=== PATIENT | male | born 1970 | race Hispanic/Latino ===

== ENCOUNTER 2018-04-16 15:37 | Inpatient (IN) | payer SELFPAY ==
[2018-04-16] MEDS ORDERED: Aspirin 325 mg EC Tablets PO ONE (16:19)
--- NOTE | 2018-04-16 16:20 | ED PDOC ---
HPI: Chest Pain Time Seen by Provider: 04/16/18 15:54 Chief Complaint (Nursing): Chest Pain History Per: Patient Onset/Duration Of Symptoms: Days (1) Current Symptoms Are (Timing): Still Present Severity: Moderate Pain Scale Rating Of: 6 Quality: Tightness Modifying Factors: None Exacerbating Factors: None Alleviating Factors: None Nitro Therapy Administered: 1, Per Own Supply Additional Complaint(s): Chest tightness assoc with exertion. Took SL Nitro with no relief. Told 6 months ago in [place] he had abnormal stress test and needed cardiac cath but has not gone. Also has h/o PE on Eliquis, but does not feel like when he had PEs. Past Medical History Vital Signs: Last Vital Signs Temp 98.1 F 04/16/18 15:45 Pulse 113 H 04/16/18 15:45 Resp 20 04/16/18 15:45 BP 152/108 H 04/16/18 15:45 Pulse Ox 97 04/16/18 15:45 - Medical History PMH: CAD, Pulmonary Embolism - Family History Family History: States: Unknown Family Hx - Home Medications Home Medications: Ambulatory Orders Medication Instructions Recorded Apixaban [Eliquis] 5 mg PO Q12 04/16/18 Aspirin [Ecotrin] 81 mg PO DAILY 04/16/18 Atorvastatin [Lipitor] 80 mg PO HS 04/16/18 Isosorbide Mononitrate [Imdur] 60 mg PO DAILY 04/16/18 Levothyroxine [Synthroid] 50 mcg PO DAILY 04/16/18 Lidocaine 5% [Lidoderm] 1 patch TD DAILY 04/16/18 Lisinopril [Zestril] 20 mg PO DAILY 04/16/18 Methylnaltrexone [place] [Relistor] 150 mg PO DAILY PRN 04/16/18 Metoprolol Tartrate [Lopressor] 150 mg PO Q12 04/16/18 Multivitamin [Multi-Vitamin Daily] 1 tab PO DAILY 04/16/18 amLODIPine [Norvasc] 5 mg PO DAILY 04/16/18 oxyCODONE [oxyCODONE Immediate 15 mg PO Q4 PRN 04/16/18 Release Tab] - Allergies Allergies/Adverse Reactions: Allergies Allergy/AdvReac Type Severity Reaction Status Date / Time Penicillins Allergy RASH Verified 04/16/18 15:45 Review of Systems ROS Statement: Except As Marked, All Systems Reviewed And Found Negative Cardiovascular: Positive for: Chest Pain Respiratory: Positive for: Shortness of Breath, SOB with Exertion Physical Exam - Reviewed Nursing Documentation Reviewed: Yes Vital Signs Reviewed: Yes - Physical Exam Appears: Positive for: Non-toxic, No Acute Distress Head Exam: Positive for: ATRAUMATIC, NORMAL INSPECTION, NORMOCEPHALIC Skin: Positive for: Normal Color, Warm, DRY Eye Exam: Positive for: EOMI, Normal appearance, PERRL ENT: Positive for: Normal ENT Inspection Neck: Positive for: Normal, Painless ROM Cardiovascular/Chest: Positive for: Regular Rate, Rhythm Respiratory: Positive for: CNT, Normal Breath Sounds Gastrointestinal/Abdominal: Positive for: Normal Exam, Soft Back: Positive for: Normal Inspection Extremity: Positive for: Normal ROM. Negative for: Calf Tenderness, Swelling Neurological/Psych: Positive for: Awake, Alert, Normal Tone - ECG O2 Sat by Pulse Oximetry: 97 Medical Decision Making Medical Decision Making: EKGSinus tach. No acute ST changes Rate 112. Will w/u for ACS withy troponins and also for PE with CTA Chest Disposition - Clinical Impression Clinical Impression: Chest pain - Patient ED Disposition Is Patient to be Admitted: Yes - Disposition Disposition Time: 16:22 Condition: FAIR Forms: [employer] (Malay) - Pt Status Changed To: Hospital Disposition Of: Observation - POA Present On Arrival: None
[2018-04-16] MEDS ORDERED: Nitroglycerin 2% 15 INCH/30 GM TUBE TOP STA (16:30)
--- NOTE | 2018-04-16 16:52 | RAD ---
Date of service: 04/16/2018 HISTORY: Chest pain COMPARISON: No prior. TECHNIQUE: Chest PA and lateral FINDINGS: LINES AND TUBES: None. LUNG AND PLEURA: The lungs are well inflated. There is subsegmental atelectasis in the lower lobes. No pleural effusion or pneumothorax. HEART AND MEDIASTINUM: The heart is not enlarged. No aortic atherosclerotic calcifications present. The hilar and mediastinal contours are within normal limits. SKELETAL STRUCTURES: The bony structures are within normal limits for the patient's age. VISUALIZED UPPER ABDOMEN: Normal. OTHER FINDINGS: None. IMPRESSION: No active pulmonary disease.
[2018-04-16] MEDS ORDERED: Nitroglycerin 2% Ointment Foilpak UD TOP ONE (17:30)
[2018-04-16] MEDS ORDERED: Iodixanol 320 MG/ML 100 ML BOTTLE IV ONE (17:35)
[2018-04-16] MEDS ORDERED: Sodium Chloride 0.9% 50 ML IV ONE (17:35)
[2018-04-16] MEDS ORDERED: Nitroglycerin 2% Ointment Foilpak UD TOP STA (17:41)
[2018-04-16 17:47] LABS: INR 1.1; PROTHROMBIN TIME 12.6 Seconds (9.8-13.1)
[2018-04-16 17:48] LABS: ALB/GLOB RATIO 1.1 (1.0-2.1); ALBUMIN 4.5 g/dL (3.5-5.0); ALT/SGPT 178 U/L (21-72); AST/SGOT 108 U/L (17-59); BLOOD UREA NITROGEN 11 mg/dl (9-20); CALCIUM 9.4 mg/dL (8.4-10.2); GFR NON-AFRICAN AMERICAN > 60
[2018-04-16 17:49] LABS: BASO % 0.5 % (0.0-2.0); EOS # 0.1 K/uL (0.0-0.7); EOS % 2.5 % (0.0-4.0); HEMOGLOBIN 13.5 g/dL (12.0-18.0); LYMPH # 0.7 K/uL (1.0-4.3); LYMPH % 16.8 % (20.0-40.0); MEAN CELL VOLUME 86.6 fl (80.0-94.0); MEAN CORPUSCULAR HEMOGLOBIN 29.1 pg (27.0-31.0); MEAN CORPUSCULAR HGB CONC 33.5 g/dL (33.0-37.0); MEAN PLATELET VOLUME 8.7 fl (7.2-11.7); MONO # 0.3 K/uL (0.0-0.8); MONO % 7.3 % (0.0-10.0); NEUT # 2.9 K/uL (1.8-7.0); NEUT % 72.9 % (50.0-75.0); NRBC % 0.3 % (0.0-0.0); RBC 4.66 Mil/uL (4.40-5.90); RED CELL DISTRIBUTION WIDTH 18.7 % (11.5-14.5)
[2018-04-16] MEDS ORDERED: METHYLNALTREXONE BROMIDE 150 MG PO PRN (18:35)
--- NOTE | 2018-04-16 19:03 | CP.PCM.HP ---
<Sultan Jackie - Last Filed: 04/16/18 19:44> History of Present Illness - History of Present Illness History of Present Illness: CC: Chest pain HPI: 47 year old Male with PMHx of hypertension, hyperlipidemia, hypothyroidism, multiple pulmonary embolism (last PE in 12/2017) presents to the emergency department for evaluation of exertional chest pain and dyspnea on exertion. States patient was climbing 2 flights of stairs when he developed squeezing, non-radiating left sided chest pain (6/10) associated with dyspnea. Denies any nausea, vomiting, diaphoresis or dizziness. Patient took SL nitroglycerin with some relief. Patient reports he had intermittent chest pain for 8 months and progressively getting worse. States he had nuclear stress test about 8 months and exercise stress test done 5 months ago, both of which were abnormal while he was in [place]. Patient was recommended to have cardiac cath done but did not follow up. Patient also reports worsening dyspnea with exertion for last 4 months. +PND and uses 2 pillows at night to sleep. Patient is unsure whether he has hx heart failure or not. Denies any leg swelling or cough. Patient has hx multiple PE in the past. States he is compliant with anticoagulation. States hypercoagulable workup was negative in the past. In the ED, patients ECG shows sinus tachycardia with no ST/T wave changes. Troponin x 1 neg. Patient is admitted for evaluation of chest pain. ROS: All 12 systems reviewed and negative except as mentioned in HPI PMD: Dr. Daniel Ayala in [place], [place] Tenterer: none PMHx: Multiple Pulmonary embolism (2014, 04/2017 and 12/2017), Hx DVT, hypertension, HLD, Hypothyroidism, abnormal stress test, back pain, rotator cuff injury, Surgical hx: Right knee, right hip pinning, L4-L5 surgery. Social hx: Denies smoking cigarettes or drinking alcohol. Denies using illicit drugs. 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 Family hx: Father had heart attack at age 54, brother CABG at age 39 and paternal grandfather had heart disease. Allergies: PCN Meds: reviewed Present on Admission - Present on Admission Any Indicators Present on Admission: Yes History of DVT/PE: Yes Review of Systems - Review of Systems Review of Systems: All 12 systems reviewed and negative except as mentioned in HPI Past Patient History - Past Social History Smoking Status: Never Smoked - CARDIAC Hx Cardiac Disorders: Yes Hx Hypertension: Yes - PULMONARY Hx Pulmonary Embolism: Yes - PSYCHIATRIC Hx Substance Use: No - SURGICAL HISTORY Hx Surgeries: Yes Hx Orthopedic Surgery: Yes - ANESTHESIA Hx Anesthesia: Yes Hx Anesthesia Reactions: No Meds Allergies/Adverse Reactions: Allergies Allergy/AdvReac Type Severity Reaction Status Date / Time Penicillins Allergy RASH Verified 04/16/18 15:45 Physical Exam - Constitutional Appears: No Acute Distress - Head Exam Head Exam: NORMAL INSPECTION - Eye Exam Eye Exam: Normal appearance - ENT Exam ENT Exam: Mucous Membranes Moist - Neck Exam Neck exam: Positive for: Normal Inspection - Respiratory Exam Respiratory Exam: Clear to Auscultation Bilateral, NORMAL BREATHING PATTERN. absent: Rhonchi, Wheezes - Cardiovascular Exam Cardiovascular Exam: Tachycardia, REGULAR RHYTHM, +S1, +S2 - GI/Abdominal Exam GI & Abdominal Exam: Normal Bowel Sounds, Soft. absent: Tenderness - Extremities Exam Extremities exam: Positive for: normal inspection. Negative for: calf tenderness, pedal edema Additional comments: Old scar on right anterior knee - Neurological Exam Neurological exam: Alert, Oriented x3 - Psychiatric Exam Psychiatric exam: Anxious - Skin Skin Exam: Normal Color Additional comments: ecchomosis on right medial arm Results - Vital Signs Recent Vital Signs: Last Vital Signs Temp 98.1 F 04/16/18 15:45 Pulse 116 H 04/16/18 17:45 Resp 20 04/16/18 15:45 BP 141/79 04/16/18 17:45 Pulse Ox 97 04/16/18 16:47 - Labs Result Diagrams: 04/16/18 17:05 04/16/18 17:05 Labs: Laboratory Results - last 24 hr 04/16/18 04/16/18 04/16/18 17:05 17:05 17:05 WBC 4.0 L RBC 4.66 Hgb 13.5 Hct 40.4 MCV 86.6 MCH 29.1 MCHC 33.5 RDW 18.7 H Plt Count 119 L MPV 8.7 Neut % (Auto) 72.9 Lymph % (Auto) 16.8 L [place] % (Auto) 7.3 Eos % (Auto) 2.5 Baso % (Auto) 0.5 Neut # (Auto) 2.9 Lymph # (Auto) 0.7 L [place] # (Auto) 0.3 Eos # (Auto) 0.1 Baso # (Auto) 0.0 PT 12.6 INR 1.1 Sodium 143 Potassium 4.2 Chloride 105 Carbon Dioxide 27 Anion Gap 15 BUN 11 Creatinine 0.9 Est GFR ( Amer) > 60 Est GFR (Non-Af Amer) > 60 Random Glucose 106 Calcium 9.4 Total Bilirubin 0.5 AST 108 H ALT 178 H Alkaline Phosphatase 55 Troponin I < 0.0120 Total Protein 8.4 H Albumin 4.5 Globulin 3.9 Albumin/Globulin Ratio 1.1 Assessment & Plan - Assessment and Plan (Free Text) Assessment: 47 year old Male with PMHx of hypertension, hyperlipidemia, hypothyroidism, multiple pulmonary embolism (last PE in 12/2017) presents to the emergency department for evaluation of exertional chest pain and dyspnea on exertion. States patient was climbing 2 flights of stairs when he developed squeezing, non-radiating left sided chest pain (07/20) associated with dyspnea. . In the ED, patients ECG shows sinus tachycardia with no ST/T wave changes. Troponin x 1 neg. Patient is admitted for evaluation of chest pain. Plan: Chest pain r/o ACS -Admit to Telemetry -s/p aspirin 325 mg and nitroglycerin patch in ED -troponin x 1 neg -ECG: sinus tachy @112 bpm, no ST/T wave changes -Hx abnormal stress test in the past -Cardiology consult -- Dr. Rosario mayo appreciated -Nuclear stress test for tomorrow AM -NPO past midnight -c/w aspirin, statin, metroprolol and rest of BP meds -f/ u echo, troponin x [address] -F/U am labs Paroxysmal nocturnal dyspnea -f/u ECHO and proBNP HX Pulmonary embolism s/p IVC filter -on Eliquis 5 mg q12h -f/u chest CT -per patient, hypercoagulable work up neg Hypertension -resume home meds Hyperlipidemia -Resume statin Hypothyroidism -resume Levothyroxine -f/u Thyroid panel Lower back pain and right shoulder pain -resume oxycodone ER 15 mg q4h prn DVT prophylaxis -Patient on eliquis 5 mg po q12 Plan discussed with Dr. Portillo Mejia, pgy-2 <Ирина Nath - Last Filed: 04/17/18 16:18> Results - Vital Signs Recent Vital Signs: Last Vital Signs Temp 97.9 F 04/17/18 15:41 Pulse 79 04/17/18 15:41 Resp 20 04/17/18 15:41 BP 120/84 04/17/18 15:41 Pulse Ox 97 04/17/18 15:41 - Labs Result Diagrams: 04/16/18 17:05 04/17/18 04:30 Labs: Laboratory Results - last 24 hr 04/16/18 04/16/18 04/16/18 17:05 17:05 17:05 WBC 4.0 L RBC 4.66 Hgb 13.5 Hct 40.4 MCV 86.6 MCH 29.1 MCHC 33.5 RDW 18.7 H Plt Count 119 L MPV 8.7 Neut % (Auto) 72.9 Lymph % (Auto) 16.8 L [place] % (Auto) 7.3 Eos % (Auto) 2.5 Baso % (Auto) 0.5 Neut # (Auto) 2.9 Lymph # (Auto) 0.7 L [place] # (Auto) 0.3 Eos # (Auto) 0.1 Baso # (Auto) 0.0 PT 12.6 INR 1.1 Sodium 143 Potassium 4.2 Chloride 105 Carbon Dioxide 27 Anion Gap 15 BUN 11 Creatinine 0.9 Est GFR ( Amer) > 60 Est GFR (Non-Af Amer) > 60 Random Glucose 106 Hemoglobin A1c Calcium 9.4 Phosphorus Magnesium Total Bilirubin 0.5 AST 108 H ALT 178 H Alkaline Phosphatase 55 Troponin I < 0.0120 NT-Pro-B Natriuret Pep Total Protein 8.4 H Albumin 4.5 Globulin 3.9 Albumin/Globulin Ratio 1.1 Triglycerides Cholesterol LDL Cholesterol Direct HDL Cholesterol Free T4 Total T3 TSH 3rd Generation 04/16/18 04/17/18 04/17/18 23:59 04:30 04:30 WBC RBC Hgb Hct MCV MCH MCHC RDW Plt Count MPV Neut % (Auto) Lymph % (Auto) [place] % (Auto) Eos % (Auto) Baso % (Auto) Neut # (Auto) Lymph # (Auto) [place] # (Auto) Eos # (Auto) Baso # (Auto) PT INR Sodium 142 Potassium 3.9 Chloride 104 Carbon Dioxide 31 H Anion Gap 11 BUN 15 Creatinine 1.0 Est GFR ( Amer) > 60 Est GFR (Non-Af Amer) > 60 Random Glucose 119 H Hemoglobin A1c 5.9 Calcium 9.0 Phosphorus 3.8 Magnesium 2.1 Total Bilirubin AST ALT Alkaline Phosphatase Troponin I < 0.0120 < 0.0120 NT-Pro-B Natriuret Pep 22.3 Total Protein Albumin Globulin Albumin/Globulin Ratio Triglycerides 168 H Cholesterol 86 LDL Cholesterol Direct 50 HDL Cholesterol 17 L Free T4 Total T3 1.58 TSH 3rd Generation 1.33 04/17/18 04:30 WBC RBC Hgb Hct MCV MCH MCHC RDW Plt Count MPV Neut % (Auto) Lymph % (Auto) [place] % (Auto) Eos % (Auto) Baso % (Auto) Neut # (Auto) Lymph # (Auto) [place] # (Auto) Eos # (Auto) Baso # (Auto) PT INR Sodium Potassium Chloride Carbon Dioxide Anion Gap BUN Creatinine Est GFR ( Amer) Est GFR (Non-Af Amer) Random Glucose Hemoglobin A1c Calcium Phosphorus Magnesium Total Bilirubin AST ALT Alkaline Phosphatase Troponin I NT-Pro-B Natriuret Pep Total Protein Albumin Globulin Albumin/Globulin Ratio Triglycerides Cholesterol LDL Cholesterol Direct HDL Cholesterol Free T4 1.30 Total T3 TSH 3rd Generation Attending/Attestation - Attestation I have personally seen and examined this patient.: Yes I have fully participated in the care of the patient.: Yes I have reviewed all pertinent clinical information: Yes Notes (Text): 04/17/18 16:18 Agree with findings and plan as above.
[2018-04-16] MEDS: oxyCODONE 5 mg Immediate Release Tab PO PRN (19:57)
[2018-04-17] MEDS: oxyCODONE 5 mg Immediate Release Tab PO PRN ×6 (00:08→21:11)
[2018-04-17 05:31] LABS: BLOOD UREA NITROGEN 15 mg/dl (9-20); GFR NON-AFRICAN AMERICAN > 60; HDL CHOLESTEROL 17 MG/DL (30-70)
[2018-04-17 05:40] LABS: LDL CHOLESTEROL 50 mg/dL (0-129)
[2018-04-17 05:41] LABS: B-TYPE NATRIURETIC PEPTIDE 22.3 pg/ml (0-450)
[2018-04-17 05:59] LABS: T3 1.58 nmol/L (1.49-2.60)
[2018-04-17] MEDS: Levothyroxine 50 MCG TAB PO SCH (06:43)
[2018-04-17] MEDS ORDERED: Perflutren Lipid Microsphere 1.5 ML SUS IV ONE (08:00)
[2018-04-17] MEDS: Lidocaine 5% Patch TD SCH (08:39)
[2018-04-17] MEDS: Multivitamin With Minerals Tab PO SCH (08:40)
--- NOTE | 2018-04-17 10:31 | CP.PCM.PN ---
<Chi Smith - Last Filed: 04/17/18 11:11> Subjective - Date & Time of Evaluation Date of Evaluation: 04/17/18 Time of Evaluation: 07:00 - Subjective Subjective: Pt seen and examined at bedside. CP resolved since ER admission. Denies acute overnight events. Objective - Vital Signs/Intake and Output Vital Signs (last 24 hours): Temp Pulse Resp BP Pulse Ox 98.0 F 72 18 127/91 H 97 04/17/18 07:47 04/17/18 08:39 04/17/18 07:47 04/17/18 08:39 04/17/18 07:47 - Medications Medications: Current Medications Amlodipine Besylate (Norvasc) 5 mg PO DAILY [facility] Last Admin: 04/17/18 08:39 Dose: 5 mg Apixaban (Eliquis) 5 mg PO Q12 [facility]; Protocol Last Admin: 04/17/18 08:39 Dose: 5 mg Aspirin (Ecotrin) 81 mg PO DAILY [facility] Last Admin: 04/17/18 08:39 Dose: 81 mg Atorvastatin Calcium (Lipitor) 80 mg PO HS [facility] Last Admin: 04/16/18 21:51 Dose: 80 mg Home Med (Methylnaltrexone [place] [Relistor]) 150 mg PO DAILY PRN PRN Reason: Constipation Isosorbide Mononitrate (Imdur) 60 mg PO DAILY [facility] Last Admin: 04/17/18 08:39 Dose: 60 mg Levothyroxine Sodium (Synthroid) 50 mcg PO DAILY@0630 [facility] Last Admin: 04/17/18 06:43 Dose: 50 mcg Lidocaine (Lidoderm) 1 ea TD DAILY [facility] Last Admin: 04/17/18 08:39 Dose: 1 ea Lisinopril (Zestril) 20 mg PO DAILY [facility] Last Admin: 04/17/18 08:38 Dose: 20 mg Metoprolol Tartrate (Lopressor) 150 mg PO Q12 [facility] Last Admin: 04/17/18 08:40 Dose: 150 mg Multivitamins/Minerals (Therapeutic-M Tab) 1 tab PO DAILY [facility] Last Admin: 04/17/18 08:40 Dose: 1 tab Nitroglycerin (Nitrostat Sl Tab) 0.4 mg SL Q5M PRN PRN Reason: Pain, moderate (4-7) Ondansetron HCl (Zofran Inj) 4 mg IVP Q6 PRN PRN Reason: Nausea/Vomiting Oxycodone HCl (Oxycodone Immediate Release Tab) 15 mg PO Q4 PRN PRN Reason: Pain, severe (8-10) Last Admin: 04/17/18 08:37 Dose: 15 mg - Labs Labs: 04/16/18 17:05 04/17/18 04:30 PT 12.6 Seconds (9.8-13.1) 04/16/18 17:05 INR 1.1 04/16/18 17:05 - Constitutional Appears: Well, No Acute Distress - Eye Exam Eye Exam: EOMI - ENT Exam ENT Exam: Mucous Membranes Moist - Respiratory Exam Respiratory Exam: Clear to Ausculation Bilateral, NORMAL BREATHING PATTERN. absent: Wheezes - Cardiovascular Exam Cardiovascular Exam: REGULAR RHYTHM, +S1, +S2 - GI/Abdominal Exam GI & Abdominal Exam: Soft, Normal Bowel Sounds. absent: Tenderness - Neurological Exam Neurological Exam: Alert, Awake, CN II-XII Intact, Oriented x3 - Psychiatric Exam Psychiatric exam: Normal Affect, Normal Mood Assessment and Plan - Assessment and Plan (Free Text) Assessment: 47 year old Male with PMHx of hypertension, hyperlipidemia, hypothyroidism, mult iple pulmonary embolism (last PE in 12/2017), admitted for evaluation of chest pain. Plan: CT chest: Slightly limited study demonstrating no definitive radiographic evidence of acute central pulmonary embolus. Minor atelectasis/scarring changes seen in the right middle lobe. Mild passive/dependent type atelectasis both posterior lower lung gonzalez. Splenomegaly. Chest pain r/o ACS -Admit to Telemetry -s/p aspirin 325 mg and nitroglycerin patch in ED -ECG: sinus tachy @112 bpm, no ST/T wave changes -Hx abnormal stress test in the past -Cardiology consult -- Dr. Rosario mayo appreciated -Exercise stress test today -troponin x 3 neg -c/w aspirin, statin, metroprolol and rest of BP meds -F/U am labs Paroxysmal nocturnal dyspnea -f/u ECHO -proBNP: 22.3 HX Pulmonary embolism s/p IVC filter -on Eliquis 5 mg q12h -chest CT -per patient, hypercoagulable work up neg Hypertension -resume home meds Hyperlipidemia -Resume statin Hypothyroidism -resume Levothyroxine -f/u Thyroid panel Lower back pain and right shoulder pain -resume oxycodone ER 15 mg q4h prn DVT prophylaxis -Patient on eliquis 5 mg po q12 Case and plan d/w Dr. Kuldeep Smith MD PGY2 <Izzy Light - Last Filed: 04/17/18 16:57> Objective - Vital Signs/Intake and Output Vital Signs (last 24 hours): Temp Pulse Resp BP Pulse Ox 97.9 F 79 20 120/84 97 04/17/18 15:41 04/17/18 15:41 04/17/18 15:41 04/17/18 15:41 04/17/18 15:41 - Medications Medications: Current Medications Amlodipine Besylate (Norvasc) 5 mg PO DAILY [facility] Last Admin: 04/17/18 08:39 Dose: 5 mg Apixaban (Eliquis) 5 mg PO Q12 [facility]; Protocol Last Admin: 04/17/18 08:39 Dose: 5 mg Aspirin (Ecotrin) 81 mg PO DAILY [facility] Last Admin: 04/17/18 08:39 Dose: 81 mg Atorvastatin Calcium (Lipitor) 80 mg PO HS [facility] Last Admin: 04/16/18 21:51 Dose: 80 mg Home Med (Methylnaltrexone [place] [Relistor]) 150 mg PO DAILY PRN PRN Reason: Constipation Isosorbide Mononitrate (Imdur) 60 mg PO DAILY [facility] Last Admin: 04/17/18 08:39 Dose: 60 mg Levothyroxine Sodium (Synthroid) 50 mcg PO DAILY@0630 [facility] Last Admin: 04/17/18 06:43 Dose: 50 mcg Lidocaine (Lidoderm) 1 ea TD DAILY [facility] Last Admin: 04/17/18 08:39 Dose: 1 ea Lisinopril (Zestril) 20 mg PO DAILY [facility] Last Admin: 04/17/18 08:38 Dose: 20 mg Metoprolol Tartrate (Lopressor) 150 mg PO Q12 [facility] Last Admin: 04/17/18 08:40 Dose: 150 mg Multivitamins/Minerals (Therapeutic-M Tab) 1 tab PO DAILY [facility] Last Admin: 04/17/18 08:40 Dose: 1 tab Nitroglycerin (Nitrostat Sl Tab) 0.4 mg SL Q5M PRN PRN Reason: Pain, moderate (4-7) Ondansetron HCl (Zofran Inj) 4 mg IVP Q6 PRN PRN Reason: Nausea/Vomiting Oxycodone HCl (Oxycodone Immediate Release Tab) 15 mg PO Q4 PRN PRN Reason: Pain, severe (8-10) Last Admin: 04/17/18 12:51 Dose: 15 mg - Labs Labs: 04/16/18 17:05 04/17/18 04:30 PT 12.6 Seconds (9.8-13.1) 04/16/18 17:05 INR 1.1 04/16/18 17:05 Attending/Attestation - Attestation I have personally seen and examined this patient.: Yes I have fully participated in the care of the patient.: Yes I have reviewed all pertinent clinical information, including history, physical exam and plan: Yes Notes (Text): Chest Pain r/o ACS Hx of PE on Eliquis and IVC filter HTN Hypothyroidism Chronic Back Pain - cont ASA, Eliquis, Statin, BB, AGNIESZKA, NTG -Cardio consulted -ECHO - Trop x 3 negative - Plan for Nuclear Stress test and poss Cardiac cath on Friday accdg to Dr Ponce - Pt gives hx of + Stress test done in [place] 6 mos ago -cont Levothyroxine - Pt on Oxycodone and follows up with Pain Mgt in [place] 04/17/18 16:57
--- NOTE | 2018-04-17 10:38 | CT ---
Date of service: 04/16/2018 PROCEDURE: CT Chest with contrast (Pulmonary Angiogram) HISTORY: Chest pain COMPARISON: None available. TECHNIQUE: Axial computed tomography images were obtained of the chest in the pulmonary arterial phase of enhancement. Coronal and sagittal reformatted images were created and reviewed. Intravenous contrast dose: 68.5 cc Visipaque 320 contrast material. Radiation dose: Total exam DLP = 349.91 mGy-cm. This CT exam was performed using one or more of the following dose reduction techniques: Automated exposure control, adjustment of the mA and/or kV according to patient size, and/or use of iterative reconstruction technique. FINDINGS: Note the study is somewhat limited due to streak and beam hardening artifact arising from left upper extremity which has not been moved from the field of view as well as suboptimal opacification of the pulmonary arteries. PULMONARY ARTERIES: The visualized portions of the pulmonary trunk, right and left main, lobar, segmental and subsegmental branches of the pulmonary arteries are well opacified with no definitive filling defects seen to suggest central pulmonary embolus. Pulmonary trunk measures approximately 2.8 cm. AORTA: No acute findings. No thoracic aortic aneurysm. Ascending thoracic aorta measures approximately 2.84 cm and descending thoracic aorta measures approximately 2.43 cm. No aortic atherosclerotic calcification or mural plaque present. LUNGS: Mild passive/dependent type atelectasis seen in both posterior lower lung gonzalez. Localized atelectasis-scarring changes also present in the left right middle lobe the PLEURAL SPACES: Unremarkable. No effusion or pneumothorax. HEART: Heart size is upper limits of normal. No significant pericardial effusion. Ascending thoracic aorta measures approximately. No significant pericardial effusion. LYMPH NODES: No significant mediastinal or hilar adenopathy. Trachea midline and patent with no large central endoluminal lesions. BONES, CHEST WALL: Minor multilevel degenerative spondylosis of the thoracic spine. OTHER FINDINGS: Spleen is enlarged measuring nearly 16 cm in AP dimension. The pancreas appears atrophic and fatty replaced. IMPRESSION: Slightly limited study demonstrating no definitive radiographic evidence of acute central pulmonary embolus. Minor atelectasis/scarring changes seen in the right middle lobe. Mild passive/dependent type atelectasis both posterior lower lung gonzalez. Splenomegaly.
[2018-04-17 17:41] LABS: BARBITURATES, UR NEGATIVE (NEGATIVE); BENZODIAZEPINES, UR NEGATIVE (NEGATIVE); OPIATES, UR POSITIVE (NEGATIVE); PHENCYCLIDINE, UR NEGATIVE (NEGATIVE)
--- NOTE | 2018-04-17 18:26 | CP.PCM.CON ---
History of Present Illness - History of Present Illness History of Present Illness: 47 YO MALE WITH CC OF CP WITH EXERTION. STATES 7/10, RELIEVED WITH REST AND SL NTG. HE ADMITS TO SOB AND PALP. NO LE PAIN, NO BLURRY VISION, DOUBLE VISION, NO RADIATING PAIN. PT HAS A LONG HX OF DVT AND PE. HE STATES HE MIGHT HAVE LUPUS ANTICOAGULANT. PT HAS BEEN ON ELIQUIS OUTPT. UNFORTUNATELY HE DOES NOT HAVE ANY OF HIS RECORDS. Review of Systems - Constitutional Constitutional: As Per HPI. absent: Anorexia, Chills, Daytime Sleepiness, Excessive Sweating, Fatigue, Fever, Frequent Falls, Headache, Increased Appetite, Lethargy, Malaise, Night Sweats, Snoring, Sleep Apnea, Weight Gain, Weight Loss, Weakness, Other - EENT Eyes: As Per HPI. absent: Blind Spots, Blurred Vision, Change in Vision, Decreased Night Vision, Diplopia, Discharge, Dry Eye, Exophthalmos, Floaters, Irritation, Itchy Eyes, Loss of Peripheral Vision, Pain, Photophobia, Requires Corrective Lenses, Sees Flashes, Spots in Vision, Tunnel Vision, Other Visual Disturbances, Loss of Vision, Other Ears: As Per HPI. absent: Decreased Hearing, Ear Discharge, Ear Pain, Tinnitus, Abnormal Hearing, Disequilibrium, Dizziness, Other Nose/Mouth/Throat: As Per HPI. absent: Epistaxis, Nasal Congestion, Nasal Discharge, Nasal Obstruction, Nasal Trauma, Nose Pain, Post Nasal Drip, Sinus Pain, Sinus Pressure, Bleeding Gums, Change in Voice, Dental Pain, Dry Mouth, Dysphagia, Halitosis, Hoarsness, Lip Swelling, Mouth Lesions, Mouth Pain, Odynophagia, Sore Throat, Throat Swelling, Tongue Swelling, Facial Pain, Neck Pain, Neck Mass, Other - Cardiovascular Cardiovascular: As Per HPI, Chest Pain with Activity, Dyspnea on Exertion, Palpitations. absent: Acrocyanosis, Chest Pain, Chest Pain at Rest, Claudication, Diaphoresis, Dyspnea, Edema, Irregular Heart Rhythm, Pain Radiating to Arm/Neck/Jaw, Leg Edema, Leg Ulcers, Lightheadedness, Orthopnea, Paroxysmal Nocturnal Dyspnea, Pedal Edema, Radiating Pain, Rapid Heart Rate, Slow Heart Rate, Syncope, Other - Respiratory Respiratory: As Per HPI. absent: Cough, Dyspnea, Hemoptysis, Dyspnea on Exertion, Wheezing, Snoring, Stridor, Pain on Inspiration, Chest Congestion, Excessive Mucous Production, Change in Mucous Color, Pain with Coughing, Other - Gastrointestinal Gastrointestinal: As Per HPI. absent: Abdominal Pain, Belching, Bloating, Change in Bowel Habits, Change in Stool Character, Coffee Ground Emesis, Con stipation, Cramping, Diarrhea, Dyspepsia, Dysphagia, Early Satiety, Excessive Flatus, Fecal Incontinence, Heartburn, Hematemesis, Hematochezia, Loose Stools, Melena, Nausea, Odynophagia, Temesmus, Vomiting, Other - Genitourinary Genitourinary: As Per HPI. absent: Change in Urinary Stream, Difficulty Urinating, Dysuria, Flank Pain, Hematuria, Pyuria, Nocturia, Urinary Incontinence, Urinary Frequency, Urinary Hesitance, Urinary Urgency, Voiding Freq/Small Amts, Freq UTI, Hx Renal/Bladder Calculi, Hx /Renal Surgery, Bladder Distension, Other - Reproductive: Male Reproductive:Male: As Per HPI - Musculoskeletal Musculoskeletal: As Per HPI. absent: Abnormal Gait, Arthralgias, Atrophy, Back Pain, Deformity, Joint Swelling, Limited Range of Motion, Loss of Height, Muscle Cramps, Muscle Weakness, Myalgias, Neck Pain, Numbness, Radiating Pain into Limb, Stiffness, Tingling, Other - Integumentary Integumentary: As Per HPI. absent: Acne, Alopecia, Bleeding Lesions, Change in Hair, Change in Nails, Change in Pigmentation, Changing Lesions, Dry Skin, Erythema, Furuncle, Hirsutism, Lesions, New Lesions, Non-Healing Lesions, Photosensitivity, Pruritus, Rash, Skin Pain, Skin Ulcer, Sores, Striae, Swelling, Unusual Bruising, Wounds, Jaundice, Other - Neurological Neurological: As Per HPI. absent: Abnormal Gait, Abnormal Hearing, Abnormal Movements, Abnormal Speech, Behavioral Changes, Burning Sensations, Confusion, Convulsions, Disequilibrium, Dizziness, Numbness, Focal Weakness, Frequent Fal ls, Headaches, Lack of Coordination, Loss of Vision, Memory Loss, Paresthesias, Radicular Pain, Restless Legs, Sensory Deficit, Syncope, Tingling, Tremor, Vertigo, Weakness, Other Visual Disturbances, Other - Psychiatric Psychiatric: As Per HPI. absent: Abnormal Sleep Pattern, Anhedonia, Anxiety, Auditory Hallucinations, Behavioral Changes, Change in Appetite, Change in Libido, Confusion, Depression, Difficulty Concentrating, Hallucinations, Homicidal Ideation, Hopelessness, Irritability, Memory Loss, Mood Swings, Panic Attacks, Paranoia, Suicidal Ideation, Visual Hallucinations, Tactile Hallucinations, Other - Endocrine Endocrine: As Per HPI. absent: Change in Body Appearance, Change in Libido, Cold Intolorance, Deepening of Voice, Excessive Sweating, Fatigue, Flushing, Heat Intolorance, Increase in Ring/Shoe/Hat Size, Palpitations, Polydipsia, Polyphagia, Polyuria, Other - Hematologic/Lymphatic Hematologic: As Per HPI. absent: Easy Bleeding, Easy Bruising, Lymphadenopathy, Other Past Patient History - Past Medical History & Family History Past Medical History?: Yes - Past Social History Smoking Status: Never Smoked Chewing Tobacco Use: No Cigar Use: No Alcohol: Occasional Drugs: Denies Home Situation {Lives}: Alone Domestic Violence: Negative - CARDIAC Hx Cardiac Disorders: Yes Hx Hypertension: Yes Other/Comment: HX OF ABN ST - PULMONARY Hx Respiratory Disorders: Yes Hx Pulmonary Embolism: Yes - NEUROLOGICAL Hx Neurological Disorder: No - HEENT Hx HEENT Problems: No - RENAL Hx Chronic Kidney Disease: No - ENDOCRINE/METABOLIC Hx Endocrine Disorders: No - HEMATOLOGICAL/ONCOLOGICAL Hx Blood Disorders: No - INTEGUMENTARY Hx Dermatological Problems: No - MUSCULOSKELETAL/RHEUMATOLOGICAL Hx Musculoskeletal Disorders: Yes Hx Falls: No Other/Comment: back problems - GASTROINTESTINAL Hx Gastrointestinal Disorders: No - GENITOURINARY/GYNECOLOGICAL Hx Genitourinary Disorders: No - PSYCHIATRIC Hx Psychophysiologic Disorder: No Hx Substance Use: No - SURGICAL HISTORY Hx Surgeries: Yes Hx Orthopedic Surgery: Yes - ANESTHESIA Hx Anesthesia: Yes Hx Anesthesia Reactions: No Hx Malignant Hyperthermia: No Has any member of the family had a problem w/ anesthesia?: No Meds Allergies/Adverse Reactions: Allergies Allergy/AdvReac Type Severity Reaction Status Date / Time Penicillins Allergy RASH Verified 04/16/18 15:45 - Medications Medications: Current Medications Amlodipine Besylate (Norvasc) 5 mg PO DAILY [facility] Last Admin: 04/17/18 08:39 Dose: 5 mg Apixaban (Eliquis) 5 mg PO Q12 [facility]; Protocol Stop: 04/19/18 09:00 Last Admin: 04/17/18 08:39 Dose: 5 mg Aspirin (Ecotrin) 81 mg PO DAILY [facility] Last Admin: 04/17/18 08:39 Dose: 81 mg Atorvastatin Calcium (Lipitor) 80 mg PO HS [facility] Last Admin: 04/16/18 21:51 Dose: 80 mg Home Med (Methylnaltrexone [place] [Relistor]) 150 mg PO DAILY PRN PRN Reason: Constipation Isosorbide Mononitrate (Imdur) 60 mg PO DAILY [facility] Last Admin: 04/17/18 08:39 Dose: 60 mg Levothyroxine Sodium (Synthroid) 50 mcg PO DAILY@0630 [facility] Last Admin: 04/17/18 06:43 Dose: 50 mcg Lidocaine (Lidoderm) 1 ea TD DAILY [facility] Last Admin: 04/17/18 08:39 Dose: 1 ea Lisinopril (Zestril) 20 mg PO DAILY [facility] Last Admin: 04/17/18 08:38 Dose: 20 mg Metoprolol Tartrate (Lopressor) 150 mg PO Q12 [facility] Last Admin: 04/17/18 08:40 Dose: 150 mg Multivitamins/Minerals (Therapeutic-M Tab) 1 tab PO DAILY [facility] Last Admin: 04/17/18 08:40 Dose: 1 tab Nitroglycerin (Nitrostat Sl Tab) 0.4 mg SL Q5M PRN PRN Reason: Pain, moderate (4-7) Ondansetron HCl (Zofran Inj) 4 mg IVP Q6 PRN PRN Reason: Nausea/Vomiting Oxycodone HCl (Oxycodone Immediate Release Tab) 15 mg PO Q4 PRN PRN Reason: Pain, severe (8-10) Last Admin: 04/17/18 16:54 Dose: 15 mg Physical Exam - Constitutional Appears: Non-toxic - Head Exam Head Exam: ATRAUMATIC, NORMAL INSPECTION, NORMOCEPHALIC - Eye Exam Eye Exam: EOMI, Normal appearance, PERRL. absent: Conjunctival injection, Nystagmus, Periorbital swelling, Periorbital tenderness, Scleral icterus Pupil Exam: NORMAL ACCOMODATION, PERRL. absent: Fixed, Irregular, Miosis, Mydriatic, Unequal - ENT Exam ENT Exam: Mucous Membranes Moist, Normal Exam. absent: Mucous Membranes Dry, Normal External Ear Exam, Normal Oropharynx, TM's Normal Bilaterally - Neck Exam Neck exam: Positive for: Normal Inspection. Negative for: Full Rom, Lymphadenopathy, Meningismus, Tenderness, Thyromegaly - Respiratory Exam Respiratory Exam: Clear to Auscultation Bilateral, NORMAL BREATHING PATTERN. absent: Accessory Muscle Use, Chest Wall Tenderness, Decreased Breath Sounds, Prolonged Expiratory Phase, Rales, Rhonchi, Wheezes, Respiratory Distress, Stridor - Cardiovascular Exam Cardiovascular Exam: REGULAR RHYTHM, +S1, +S2, Systolic Murmur. absent: Bradycardia, Tachycardia, Clicks, Diastolic murmur, Gallop, Irregular Rhythm, JVD, RRR, Rubs, +S4 - GI/Abdominal Exam GI & Abdominal Exam: Normal Bowel Sounds, Soft. absent: Bruit, Diminished Bowel Sounds, Distended, Firm, Guarding, Hernia, Hyperactive Bowel Sounds, Hypoactive Bowel Sounds, Mass, Organomegaly, Pulsatile Mass, Rebound, Rigid, Tenderness - Rectal Exam Rectal Exam: Deferred - Extremities Exam Extremities exam: Positive for: normal inspection, pedal pulses present. Negative for: calf tenderness, full ROM, joint swelling, normal capillary refill, pedal edema, tenderness - Back Exam Back exam: NORMAL INSPECTION. absent: CVA tenderness (L), CVA tenderness (R), FULL ROM, muscle spasm, paraspinal tenderness, rash noted, tenderness, vertebral tenderness - Neurological Exam Neurological exam: Alert, CN II-XII Intact, Normal Gait, Oriented x3, Reflexes Normal - Psychiatric Exam Psychiatric exam: Normal Affect, Normal Mood - Skin Skin Exam: Dry, Intact, Normal Color, Warm Results - Vital Signs Recent Vital Signs: Last Vital Signs Temp 97.9 F 04/17/18 15:41 Pulse 79 04/17/18 15:41 Resp 20 04/17/18 15:41 BP 120/84 04/17/18 15:41 Pulse Ox 97 04/17/18 15:41 - Labs Result Diagrams: 04/20/18 04:25 04/20/18 04:25 Labs: Laboratory Results - last 24 hr 04/16/18 04/17/18 04/17/18 23:59 04:30 04:30 Sodium 142 Potassium 3.9 Chloride 104 Carbon Dioxide 31 H Anion Gap 11 BUN 15 Creatinine 1.0 Est GFR ( Amer) > 60 Est GFR (Non-Af Amer) > 60 Random Glucose 119 H Hemoglobin A1c 5.9 Calcium 9.0 Phosphorus 3.8 Magnesium 2.1 Troponin I < 0.0120 < 0.0120 NT-Pro-B Natriuret Pep 22.3 Triglycerides 168 H Cholesterol 86 LDL Cholesterol Direct 50 HDL Cholesterol 17 L Free T4 Total T3 1.58 TSH 3rd Generation 1.33 Urine Opiates Screen Urine Methadone Screen Ur Barbiturates Screen Ur Phencyclidine Scrn Ur Amphetamines Screen U Benzodiazepines Scrn U Oth Cocaine Metabols U Cannabinoids Screen 04/17/18 04/17/18 04:30 17:16 Sodium Potassium Chloride Carbon Dioxide Anion Gap BUN Creatinine Est GFR ( Amer) Est GFR (Non-Af Amer) Random Glucose Hemoglobin A1c Calcium Phosphorus Magnesium Troponin I NT-Pro-B Natriuret Pep Triglycerides Cholesterol LDL Cholesterol Direct HDL Cholesterol Free T4 1.30 Total T3 TSH 3rd Generation Urine Opiates Screen Positive H Urine Methadone Screen Negative Ur Barbiturates Screen Negative Ur Phencyclidine Scrn Negative Ur Amphetamines Screen Negative U Benzodiazepines Scrn Negative U Oth Cocaine Metabols Negative U Cannabinoids Screen Negative - EKG Data EKG Interpreted by: Myself EKG shows normal: Sinus rhythm Assessment & Plan (1) Angina pectoris Status: Acute (2) Abnormal stress test Status: Chronic (3) HTN (hypertension) Status: Acute Comment: PER PT (4) Hx of pulmonary embolus Status: Acute (5) Presence of IVC filter Status: Acute (6) Dyslipidemia Status: Acute - Assessment and Plan (Free Text) Plan: EF NORMAL ON ECHO. ST CANCELED TODAY BY DEPARTMENT PT TOLD THEM HE HAD ABN ST IN PAST AND WILL HAVE HIS GF FAX THE RESULTS. HE DESCRIBES AN ABN SEGMENT ON ST PT ALSO STATES HE HAD REPEAT ST AT [facility] ER WHICH WAS ABN YET NO CATH WAS DONE. WE NEED TO OBTAIN THE ST RESULTS FROM [place] CARDIAC CATH FRIDAY AT 1PM AT [facility] [place] FRIDAY HOLD ELIQUIS AFTER SAT DOSES. MONITOR LYTES CONT TELE CONT ASA 75 MIN TOTAL CARE TIME
--- NOTE | 2018-04-17 18:54 | CARD ---
APPROVED REPORT Date of service: 04/16/2018 EKG Measurement Heart [id number] <Conclusion> Sinus tachycardia Minimal voltage criteria for LVH, may be normal variant Borderline ECG
--- NOTE | 2018-04-17 19:18 | CARD ---
APPROVED REPORT Date of service: 04/17/2018 EXAM: Two-dimensional and M-mode echocardiogram with Doppler, color Doppler with contrast. Other Information Quality : GoodRhythm : NSR INDICATION Dyspnea Pulmonary Hypertention History of Pulmonary Emboli Echo Enhancing Agent Indication: Endocardial border delineation Agent/Amount Used: Definity 2D DIMENSIONS IVSd1.81 (0.7-1.1cm)LVDd4.56 (3.9-5.9cm) LVOT Diameter2.50 (1.8-2.4cm)PWd1.32 (0.7-1.1cm) IVSs1.72 (0.8-1.2cm)LVDs3.33 (2.5-4.0cm) FS (%) 27.1 %PWs1.34 (0.8-1.2cm) M-Mode DIMENSIONS Left Atrium (MM)4.24 (2.5-4.0cm)IVSd1.39 (0.7-1.1cm) Aortic Root3.61 (2.2-3.7cm)LVDd5.23 (4.0-5.6cm) Aortic Cusp Exc.2.48 (1.5-2.0cm)PWd1.19 (0.7-1.1cm) IVSs1.69 cmFS (%) 34 % LVDs3.44 (2.0-3.8cm)PWs1.56 cm Aortic Valve AoV Peak Gqghtdjg384.4cm/sAoV VTI18.8cmAO Peak GR.4mmHg LVOT Peak Zlnppiyc48.2cm/sLVOT VTI13.28cmAO Mean GR.3mmHg JOSEFINA (VMAX)1.20ap5AES (VTI)1.39cm2 Mitral Valve MV E Qqqjeggz01.6cm/sMV DECEL [id number] A Vmefuocd84.2cm/s MV EAG76jmG/A ratio0.9MVA (PHT)3.74cm2 TDI Lateral E' Peak V10.59cm/sMedial E' Peak V7.74cm/sE/Lateral E'6.3 E/Medial E'8.6 LEFT VENTRICLE The left ventricle is normal size. There is mild concentric left ventricular hypertrophy. The left ventricular systolic function is normal. The estimated ejection fraction is 55-60% No regional wall motion abnormalities noted.. Transmitral Doppler flow pattern is Grade I-abnormal relaxation pattern. No left ventricle thrombus noted on this study. There is no ventricular septal defect visualized. There is no left ventricular aneurysm. There is no mass noted in the left ventricle. RIGHT VENTRICLE The right ventricle is normal size. There is normal right ventricular wall thickness. The right ventricular systolic function is normal. ATRIA The left atrium is mildly dilated. The right atrium size is normal. The interatrial septum is intact with no evidence for an atrial septal defect. AORTIC VALVE The aortic valve is normal in structure. No aortic regurgitation is present. There is no aortic valvular stenosis. There is no aortic valvular vegetation. MITRAL VALVE The mitral valve is normal in structure. There is no evidence of mitral valve prolapse. There is no mitral valve stenosis. There is no mitral valve regurgitation noted. TRICUSPID VALVE The tricuspid valve is normal in structure. There is no tricuspid valve regurgitation noted. There is no tricuspid valve prolapse or vegetation. There is no tricuspid valve stenosis. PULMONIC VALVE The pulmonary valve is normal in structure. There is no pulmonic valvular regurgitation. There is no pulmonic valvular stenosis. GREAT VESSELS The aortic root is normal in size. The ascending aorta is normal in size. The pulmonary artery is normal. The IVC is not well visualized. PERICARDIAL EFFUSION There is no pericardial effusion. There is no pleural effusion. <Conclusion> There is mild concentric left ventricular hypertrophy. The estimated ejection fraction is 55-60% Transmitral Doppler flow pattern is Grade I-abnormal relaxation pattern. The left atrium is mildly dilated. There is no tricuspid valve regurgitation noted. The IVC is not well visualized.
[2018-04-18] MEDS: oxyCODONE 5 mg Immediate Release Tab PO PRN ×6 (01:03→21:57)
[2018-04-18] MEDS: Levothyroxine 50 MCG TAB PO SCH (06:29)
[2018-04-18] MEDS: Lidocaine 5% Patch TD SCH ×2 (09:16→09:24)
[2018-04-18] MEDS: Multivitamin With Minerals Tab PO SCH (09:19)
--- NOTE | 2018-04-18 09:33 | CP.PCM.PN ---
Subjective - Date & Time of Evaluation Date of Evaluation: 04/18/18 Time of Evaluation: 07:00 - Subjective Subjective: Pt seen and examined at bedside this AM. Denies acute overnight events. Denies chest pain. Tolerating PO diet. Objective - Vital Signs/Intake and Output Vital Signs (last 24 hours): Temp Pulse Resp BP Pulse Ox 98.1 F 91 H 18 128/80 97 04/18/18 08:06 04/18/18 09:19 04/18/18 08:06 04/18/18 09:19 04/18/18 08:06 - Medications Medications: Current Medications Amlodipine Besylate (Norvasc) 5 mg PO DAILY [facility] Last Admin: 04/18/18 09:19 Dose: 5 mg Apixaban (Eliquis) 5 mg PO Q12 [facility]; Protocol Stop: 04/19/18 09:00 Last Admin: 04/18/18 09:16 Dose: 5 mg Aspirin (Ecotrin) 81 mg PO DAILY [facility] Last Admin: 04/18/18 09:16 Dose: 81 mg Atorvastatin Calcium (Lipitor) 80 mg PO HS [facility] Last Admin: 04/17/18 21:07 Dose: 80 mg Home Med (Methylnaltrexone [place] [Relistor]) 150 mg PO DAILY PRN PRN Reason: Constipation Isosorbide Mononitrate (Imdur) 60 mg PO DAILY [facility] Last Admin: 04/18/18 09:16 Dose: 60 mg Levothyroxine Sodium (Synthroid) 50 mcg PO DAILY@0630 [facility] Last Admin: 04/18/18 06:29 Dose: 50 mcg Lidocaine (Lidoderm) 1 ea TD DAILY [facility] Last Admin: 04/18/18 09:24 Dose: Not Given Lisinopril (Zestril) 20 mg PO DAILY [facility] Last Admin: 04/18/18 09:18 Dose: 20 mg Metoprolol Tartrate (Lopressor) 150 mg PO Q12 [facility] Last Admin: 04/17/18 21:11 Dose: 150 mg Multivitamins/Minerals (Therapeutic-M Tab) 1 tab PO DAILY [facility] Last Admin: 04/18/18 09:19 Dose: 1 tab Nitroglycerin (Nitrostat Sl Tab) 0.4 mg SL Q5M PRN PRN Reason: Pain, moderate (4-7) Ondansetron HCl (Zofran Inj) 4 mg IVP Q6 PRN PRN Reason: Nausea/Vomiting Oxycodone HCl (Oxycodone Immediate Release Tab) 15 mg PO Q4 PRN PRN Reason: Pain, severe (8-10) Last Admin: 04/18/18 09:22 Dose: 15 mg - Labs Labs: 04/16/18 17:05 04/17/18 04:30 PT 12.6 Seconds (9.8-13.1) 04/16/18 17:05 INR 1.1 04/16/18 17:05 - Constitutional Appears: No Acute Distress - Eye Exam Eye Exam: EOMI - ENT Exam ENT Exam: Mucous Membranes Moist - Respiratory Exam Respiratory Exam: Clear to Ausculation Bilateral, NORMAL BREATHING PATTERN. absent: Wheezes - Cardiovascular Exam Cardiovascular Exam: REGULAR RHYTHM, +S1, +S2 - GI/Abdominal Exam GI & Abdominal Exam: Soft, Normal Bowel Sounds. absent: Tenderness - Extremities Exam Extremities Exam: absent: Calf Tenderness - Neurological Exam Neurological Exam: Alert, Awake, CN II-XII Intact, Normal Gait, Oriented x3 - Psychiatric Exam Psychiatric exam: Normal Affect, Normal Mood Assessment and Plan - Assessment and Plan (Free Text) Assessment: 47 year old Male with PMHx of hypertension, hyperlipidemia, hypothyroidism, multiple pulmonary embolism (last PE in 12/2017), admitted for evaluation of chest pain. Plan: CT chest: Slightly limited study demonstrating no definitive radiographic ev idence of acute central pulmonary embolus. Minor atelectasis/scarring changes seen in the right middle lobe. Mild passive/dependent type atelectasis both posterior lower lung gonzalez. Splenomegaly. ECHO: EF 55-60%, mild LVH Chest pain r/o ACS -Admit to Telemetry -s/p aspirin 325 mg and nitroglycerin patch in ED -ECG: sinus tachy @112 bpm, no ST/T wave changes -Hx abnormal stress test in the past -Cardiology consult -- Dr. Ponce: to cath on friday: hold eliquis on friday -troponin x 3 neg -c/w aspirin, statin, metroprolol and rest of BP meds -F/U am labs Paroxysmal nocturnal dyspnea -ECHO -proBNP: 22.3 HX Pulmonary embolism s/p IVC filter -on Eliquis 5 mg q12h -chest CT -per patient, hypercoagulable work up neg Hypertension -resume home meds Hyperlipidemia -Resume statin Hypothyroidism -resume Levothyroxine -f/u Thyroid panel Lower back pain and right shoulder pain -resume oxycodone ER 15 mg q4h prn DVT prophylaxis -Patient on eliquis 5 mg po q12 Case and plan d/w Dr. Marco Smith MD PGY2
[2018-04-19] MEDS: oxyCODONE 10 mg Immediate Release Tab PO PRN ×6 (03:08→23:27)
[2018-04-19 06:05] LABS: HEMOGLOBIN 13.4 g/dL (12.0-18.0); MEAN CELL VOLUME 86.3 fl (80.0-94.0); MEAN CORPUSCULAR HEMOGLOBIN 29.2 pg (27.0-31.0); MEAN CORPUSCULAR HGB CONC 33.9 g/dL (33.0-37.0); RBC 4.57 Mil/uL (4.40-5.90); RED CELL DISTRIBUTION WIDTH 18.8 % (11.5-14.5); WHITE BLOOD COUNT 4.3 K/uL (4.8-10.8)
[2018-04-19 06:20] LABS: BLOOD UREA NITROGEN 14 mg/dl (9-20); CALCIUM 9.3 mg/dL (8.4-10.2); GFR NON-AFRICAN AMERICAN > 60
[2018-04-19] MEDS: Levothyroxine 50 MCG TAB PO SCH (06:37)
--- NOTE | 2018-04-19 07:57 | CP.PCM.PN ---
Subjective - Date & Time of Evaluation Date of Evaluation: 04/19/18 Time of Evaluation: 07:57 - Subjective Subjective: pt seen and evaluated at bedside. No acute events overnight. Slept well. Pt is seen sitting up, having breakfast, comfortable, NAD. Denies any chest pain. OOB/Ambulating without issue. No new complaints or concerns. Pt is afebrile, and hemodynamically stable. Objective - Vital Signs/Intake and Output Vital Signs (last 24 hours): Temp Pulse Resp BP Pulse Ox 98.4 F 96 H 18 110/79 96 04/19/18 05:20 04/19/18 05:20 04/19/18 05:20 04/19/18 05:20 04/19/18 05:20 - Medications Medications: Current Medications Amlodipine Besylate (Norvasc) 5 mg PO DAILY [facility] Last Admin: 04/18/18 09:19 Dose: 5 mg Apixaban (Eliquis) 5 mg PO Q12 [facility]; Protocol Stop: 04/19/18 09:00 Last Admin: 04/18/18 21:08 Dose: 5 mg Aspirin (Ecotrin) 81 mg PO DAILY [facility] Last Admin: 04/18/18 09:16 Dose: 81 mg Atorvastatin Calcium (Lipitor) 80 mg PO HS [facility] Last Admin: 04/18/18 21:08 Dose: 80 mg Home Med (Methylnaltrexone Hoffmeister [Relistor]) 150 mg PO DAILY PRN PRN Reason: Constipation Isosorbide Mononitrate (Imdur) 60 mg PO DAILY [facility] [place] Last Admin: 04/18/18 09:16 Dose: 60 mg Levothyroxine Sodium (Synthroid) 50 mcg PO DAILY@0630 [facility] Last Admin: 04/19/18 06:37 Dose: 50 mcg Lidocaine (Lidoderm) 1 ea TD DAILY [facility] [place] Last Admin: 04/18/18 09:24 Dose: Not Given Lisinopril (Zestril) 20 mg PO DAILY [facility] Last Admin: 04/18/18 09:18 Dose: 20 mg Metoprolol Tartrate (Lopressor) 150 mg PO Q12 [facility] [place] Last Admin: 04/18/18 21:08 Dose: 150 mg Multivitamins/Minerals (Therapeutic-M Tab) 1 tab PO DAILY [facility] Last Admin: 04/18/18 09:19 Dose: 1 tab Nitroglycerin (Nitrostat Sl Tab) 0.4 mg SL Q5M PRN PRN Reason: Pain, moderate (4-7) Ondansetron HCl (Zofran Inj) 4 mg IVP Q6 PRN PRN Reason: Nausea/Vomiting Oxycodone HCl (Oxycodone Immediate Release Tab) 15 mg PO Q4 PRN PRN Reason: Pain, severe (8-10) Last Admin: 04/19/18 06:36 Dose: 15 mg - Labs Labs: 04/19/18 04:30 04/19/18 04:30 PT 12.6 Seconds (9.8-13.1) 04/16/18 17:05 INR 1.1 04/16/18 17:05 - Constitutional Appears: Non-toxic, No Acute Distress - Head Exam Head Exam: ATRAUMATIC, NORMOCEPHALIC - Eye Exam Eye Exam: EOMI. absent: Scleral icterus Pupil Exam: PERRL - ENT Exam ENT Exam: Mucous Membranes Moist - Neck Exam Neck Exam: Full ROM. absent: Lymphadenopathy - Respiratory Exam Respiratory Exam: Clear to Ausculation Bilateral, NORMAL BREATHING PATTERN. absent: Decreased Breath Sounds, Rales, Rhonchi, Wheezes, Stridor - Cardiovascular Exam Cardiovascular Exam: REGULAR RHYTHM, RRR, +S1, +S2. absent: Bradycardia, Tachyc ardia, Irregular Rhythm, JVD, Rubs, Murmur - GI/Abdominal Exam GI & Abdominal Exam: Soft, Normal Bowel Sounds. absent: Tenderness - Extremities Exam Extremities Exam: Normal Capillary Refill, Normal Inspection. absent: Calf Tenderness, Pedal Edema - Neurological Exam Neurological Exam: Alert, Awake, CN II-XII Intact, Normal Gait, Oriented x3 - Psychiatric Exam Psychiatric exam: Normal Affect, Normal Mood Assessment and Plan - Assessment and Plan (Free Text) Assessment: 47 year old Male with PMHx of hypertension, hyperlipidemia, hypothyroidism, multiple pulmonary embolism (last PE in 12/2017), admitted for evaluation of chest pain, awaiting cardiac cath on 04/20. Plan: Chest pain -Hx abnormal stress test in the past -Cardiology consult -- Dr. Ponce: to cath on friday: hold eliquis on friday -troponin x 3 neg -CT chest: Slightly limited study demonstrating no definitive radiographic evidence of acute central pulmonary embolus. Minor atelectasis/scarring changes seen in the right middle lobe. Mild passive/dependent type atelectasis both posterior lower lung gonzalez. Splenomegaly. -ECHO: EF 55-60%, mild LVH -c/w aspirin, statin, metroprolol and rest of BP meds -NPO after midnight HX Pulmonary embolism s/p IVC filter -on Eliquis 5 mg q12h -per patient, hypercoagulability work up unremarkable -hold eliquis day prior to cardiac cath Hypertension -controlled -c/w home medications Hyperlipidemia -c/w statin therapy Hypothyroidism -controlled -resume Levothyroxine -Thyroid studies all wnl Chronic Lower back pain and right shoulder pain -resume oxycodone ER 15 mg q4h prn DVT prophylaxis -Patient on eliquis 5 mg po q12 -SCDs
[2018-04-19] MEDS: Lidocaine 5% Patch TD SCH (09:41)
[2018-04-19] MEDS: Multivitamin With Minerals Tab PO SCH (09:44)
--- NOTE | 2018-04-19 11:21 | CP.PCM.PN ---
Subjective - Date & Time of Evaluation Date of Evaluation: 04/19/18 Time of Evaluation: 11:21 - Subjective Subjective: RESTING COMFORTABLY. NO FURTHER CP Objective - Vital Signs/Intake and Output Vital Signs (last 24 hours): Temp Pulse Resp BP Pulse Ox 98.2 F 90 20 111/74 95 04/19/18 08:15 04/19/18 10:28 04/19/18 08:15 04/19/18 10:28 04/19/18 08:15 - Medications Medications: Current Medications Amlodipine Besylate (Norvasc) 5 mg PO DAILY [facility] Last Admin: 04/19/18 09:43 Dose: 5 mg Aspirin (Ecotrin) 81 mg PO DAILY [facility] Last Admin: 04/19/18 09:40 Dose: 81 mg Atorvastatin Calcium (Lipitor) 80 mg PO HS [facility] Last Admin: 04/18/18 21:08 Dose: 80 mg Home Med (Methylnaltrexone Darby [Relistor]) 150 mg PO DAILY PRN PRN Reason: Constipation Isosorbide Mononitrate (Imdur) 60 mg PO DAILY [facility] Last Admin: 04/19/18 09:41 Dose: 60 mg Levothyroxine Sodium (Synthroid) 50 mcg PO DAILY@0630 [facility] Last Admin: 04/19/18 06:37 Dose: 50 mcg Lidocaine (Lidoderm) 1 ea TD DAILY [facility] Last Admin: 04/19/18 09:41 Dose: Not Given Lisinopril (Zestril) 20 mg PO DAILY [facility] Last Admin: 04/19/18 09:44 Dose: 20 mg Metoprolol Tartrate (Lopressor) 150 mg PO Q12 [facility] Last Admin: 04/19/18 10:28 Dose: 150 mg Multivitamins/Minerals (Therapeutic-M Tab) 1 tab PO DAILY [facility] Last Admin: 04/19/18 09:44 Dose: 1 tab Nitroglycerin (Nitrostat Sl Tab) 0.4 mg SL Q5M PRN PRN Reason: Pain, moderate (4-7) Ondansetron HCl (Zofran Inj) 4 mg IVP Q6 PRN PRN Reason: Nausea/Vomiting Oxycodone HCl (Oxycodone Immediate Release Tab) 15 mg PO Q4 PRN PRN Reason: Pain, severe (8-10) Last Admin: 04/19/18 10:42 Dose: 15 mg - Labs Labs: 04/19/18 04:30 04/19/18 04:30 PT 12.6 Seconds (9.8-13.1) 04/16/18 17:05 INR 1.1 04/16/18 17:05 - Constitutional Appears: Well - Head Exam Head Exam: ATRAUMATIC, NORMAL INSPECTION, NORMOCEPHALIC - Eye Exam Eye Exam: EOMI, Normal appearance, PERRL. absent: Conjunctival injection, Nystagmus, Periorbital swelling, Periorbital tenderness, Scleral icterus Pupil Exam: NORMAL ACCOMODATION, PERRL - ENT Exam ENT Exam: Mucous Membranes Moist, Normal Exam. absent: Mucous Membranes Dry, Normal External Ear Exam, Normal Oropharynx, TM's Normal Bilaterally - Neck Exam Neck Exam: Full ROM, Normal Inspection. absent: Lymphadenopathy, Meningismus, Tenderness, Thyromegaly - Respiratory Exam Respiratory Exam: Clear to Ausculation Bilateral, NORMAL BREATHING PATTERN. absent: Accessory Muscle Use, Chest Wall Tenderness, Decreased Breath Sounds, Prolonged Expiratory Phase, Rales, Rhonchi, Wheezes, Respiratory Distress, Stridor - Cardiovascular Exam Cardiovascular Exam: REGULAR RHYTHM, +S1, +S2, Murmur. absent: Bradycardia, Tachycardia, Clicks, Diastolic murmur, Gallop, Irregular Rhythm, JVD, RRR, Rubs, +S4 - GI/Abdominal Exam GI & Abdominal Exam: Soft, Normal Bowel Sounds. absent: Bruit, Distended, Firm, Guarding, Rigid, Tenderness, Diminished Bowel Sounds, Hernia, Hyperactive Bowel Sounds, Hypoactive Bowel Sounds, Organomegaly, Pulsatile Mass, Rebound, Mass - Extremities Exam Extremities Exam: Full ROM, Normal Capillary Refill, Normal Inspection, Pedal Edema. absent: Calf Tenderness, Joint Swelling, Tenderness - Back Exam Back Exam: NORMAL INSPECTION. absent: CVA tenderness (L), CVA tenderness (R), Full ROM, muscle spasm, paraspinal tenderness, rash noted, tenderness, vertebral tenderness - Neurological Exam Neurological Exam: Alert, Awake, CN II-XII Intact, Normal Gait, Oriented x3. absent: Abnormal Gait, Altered, Motor Sensory Deficit, Reflexes Normal - Psychiatric Exam Psychiatric exam: Normal Affect, Normal Mood. absent: Agitated, Anxious, Depressed, Flat Affect, Homicidal Ideation, Manic, Suicidal Ideation - Skin Skin Exam: Dry, Intact, Normal Color, Warm. absent: Abrasion, Cyanosis, Diaphoretic, Erythema, Mottled, Pallor, Pallor, Petechiae, Rash, Urticaria, Vesicles Assessment and Plan (1) Angina pectoris Status: Acute (2) Abnormal stress test Status: Acute (3) HTN (hypertension) Status: Acute (4) Hx of pulmonary embolus Status: Acute (5) Presence of IVC filter Status: Acute (6) Dyslipidemia Status: Acute - Assessment and Plan (Free Text) Plan: npo post mn give am meds except lisinopril and eliquis check am labs cath at 1 pm
[2018-04-20] MEDS: oxyCODONE 10 mg Immediate Release Tab PO PRN ×2 (03:43→07:55)
[2018-04-20 05:42] LABS: HEMOGLOBIN 12.9 g/dL (12.0-18.0); MEAN CELL VOLUME 87.1 fl (80.0-94.0); MEAN CORPUSCULAR HEMOGLOBIN 28.7 pg (27.0-31.0); RBC 4.5 Mil/uL (4.40-5.90); RED CELL DISTRIBUTION WIDTH 18.2 % (11.5-14.5); WHITE BLOOD COUNT 3.6 K/uL (4.8-10.8)
[2018-04-20] MEDS: Levothyroxine 50 MCG TAB PO SCH (05:44)
[2018-04-20 05:50] LABS: BLOOD UREA NITROGEN 13 mg/dl (9-20); CALCIUM 9.2 mg/dL (8.4-10.2); GFR NON-AFRICAN AMERICAN > 60
--- NOTE | 2018-04-20 06:51 | CP.PCM.PN ---
Subjective - Date & Time of Evaluation Date of Evaluation: 04/20/18 Time of Evaluation: 06:51 - Subjective Subjective: Pt seen and examined at bedside. Reports he had blood mixed in his stool last night. Pt reports intermittent occurance for the past month. Denies current rectal bleed. Objective - Vital Signs/Intake and Output Vital Signs (last 24 hours): Temp Pulse Resp BP Pulse Ox 98 F 97 H 20 123/80 95 04/20/18 04:12 04/20/18 04:12 04/20/18 04:12 04/20/18 04:12 04/20/18 04:12 Intake and Output: 04/19/18 04/20/18 18:59 06:59 Intake Total 1400 Balance 1400 - Medications Medications: Current Medications Amlodipine Besylate (Norvasc) 5 mg PO DAILY [facility] Last Admin: 04/19/18 09:43 Dose: 5 mg Aspirin (Ecotrin) 81 mg PO DAILY [facility] Last Admin: 04/19/18 09:40 Dose: 81 mg Atorvastatin Calcium (Lipitor) 80 mg PO HS [facility] Last Admin: 04/19/18 21:32 Dose: 80 mg Isosorbide Mononitrate (Imdur) 60 mg PO DAILY [facility] Last Admin: 04/19/18 09:41 Dose: 60 mg Levothyroxine Sodium (Synthroid) 50 mcg PO DAILY@0630 [facility] Last Admin: 04/20/18 05:44 Dose: 50 mcg Lidocaine (Lidoderm) 1 ea TD DAILY [facility] Last Admin: 04/19/18 09:41 Dose: Not Given Lisinopril (Zestril) 20 mg PO DAILY [facility] Last Admin: 04/19/18 09:44 Dose: 20 mg Metoprolol Tartrate (Lopressor) 150 mg PO Q12 [facility] Last Admin: 04/19/18 21:33 Dose: 150 mg Multivitamins/Minerals (Therapeutic-M Tab) 1 tab PO DAILY [facility] Last Admin: 04/19/18 09:44 Dose: 1 tab Nitroglycerin (Nitrostat Sl Tab) 0.4 mg SL Q5M PRN PRN Reason: Pain, moderate (4-7) Ondansetron HCl (Zofran Inj) 4 mg IVP Q6 PRN PRN Reason: Nausea/Vomiting Oxycodone HCl (Oxycodone Immediate Release Tab) 15 mg PO Q4 PRN PRN Reason: Pain, severe (8-10) Last Admin: 04/20/18 03:43 Dose: 15 mg - Labs Labs: 04/20/18 04:25 04/20/18 04:25 PT 12.6 Seconds (9.8-13.1) 04/16/18 17:05 INR 1.1 04/16/18 17:05 - Constitutional Appears: Well, No Acute Distress - Eye Exam Eye Exam: EOMI - ENT Exam ENT Exam: Mucous Membranes Moist - Neck Exam Neck Exam: Full ROM - Respiratory Exam Respiratory Exam: Clear to Ausculation Bilateral, NORMAL BREATHING PATTERN. absent: Wheezes - Cardiovascular Exam Cardiovascular Exam: +S1, +S2 - GI/Abdominal Exam GI & Abdominal Exam: Soft, Normal Bowel Sounds - Extremities Exam Extremities Exam: Full ROM - Neurological Exam Neurological Exam: Alert, Awake, CN II-XII Intact, Normal Gait, Oriented x3 Assessment and Plan - Assessment and Plan (Free Text) Assessment: 47 year old Male with PMHx of hypertension, hyperlipidemia, hypothyroidism, multiple pulmonary embolism (last PE in 12/2017), admitted for evaluation of chest pain, awaiting cardiac cath today. Plan: Chest pain -Hx abnormal stress test in the past -Cardiology consult -- Dr. Ponce: to cath on today: held eliquis on yesterday -troponin x 3 neg -CT chest: Slightly limited study demonstrating no definitive radiographic hiram dence of acute central pulmonary embolus. Minor atelectasis/scarring changes seen in the right middle lobe. Mild passive/dependent type atelectasis both posterior lower lung gonzalez. Splenomegaly. -ECHO: EF 55-60%, mild LVH -c/w aspirin, statin, metroprolol and rest of BP meds -NPO after midnight HX Pulmonary embolism s/p IVC filter -on Eliquis 5 mg q12h -per patient, hypercoagulability work up unremarkable -held eliquis day prior to cardiac cath Hypertension -controlled -c/w home medications Hyperlipidemia -c/w statin therapy Blood in stool -Per patient; pending further eval -Pt has 1 month hx -Father with colon ca at 54 -Pt due for screening colonoscopy -monitor for further rectal bleed Hypothyroidism -controlled -resume Levothyroxine -Thyroid studies all wnl Chronic Lower back pain and right shoulder pain -resume oxycodone ER 15 mg q4h prn DVT prophylaxis -Patient was on eliquis 5 mg po q12 -SCDs Case and plan d/w Dr. Marco Smith MD PGY2
[2018-04-20] MEDS: Multivitamin With Minerals Tab PO SCH (08:04)
[2018-04-20] MEDS: Lidocaine 5% Patch TD SCH (08:07)
[2018-04-20] MEDS ORDERED: oxyCODONE 5 mg Immediate Release Tab PO PRN (11:30)
--- NOTE | 2018-04-20 15:45 | CP.PCM.PN ---
Subjective - Date & Time of Evaluation Date of Evaluation: 04/20/18 Time of Evaluation: 15:41 - Subjective Subjective: STRESS TEST NOT OBTAINED. Objective - Vital Signs/Intake and Output Vital Signs (last 24 hours): Temp Pulse Resp BP Pulse Ox 98.1 F 92 H 20 109/77 96 04/20/18 08:09 04/20/18 09:36 04/20/18 08:09 04/20/18 09:36 04/20/18 08:09 - Medications Medications: Current Medications Amlodipine Besylate (Norvasc) 5 mg PO DAILY [facility] Last Admin: 04/20/18 08:05 Dose: 5 mg Aspirin (Ecotrin) 81 mg PO DAILY [facility] Last Admin: 04/20/18 08:04 Dose: 81 mg Atorvastatin Calcium (Lipitor) 80 mg PO HS [facility] Last Admin: 04/19/18 21:32 Dose: 80 mg Isosorbide Mononitrate (Imdur) 60 mg PO DAILY [facility] Last Admin: 04/20/18 08:05 Dose: 60 mg Levothyroxine Sodium (Synthroid) 50 mcg PO DAILY@0630 [facility] Last Admin: 04/20/18 05:44 Dose: 50 mcg Lidocaine (Lidoderm) 1 ea TD DAILY [facility] Last Admin: 04/20/18 08:07 Dose: Not Given Lisinopril (Zestril) 20 mg PO DAILY [facility] Last Admin: 04/19/18 09:44 Dose: 20 mg Metoprolol Tartrate (Lopressor) 150 mg PO Q12 [facility] Last Admin: 04/20/18 09:36 Dose: 150 mg Multivitamins/Minerals (Therapeutic-M Tab) 1 tab PO DAILY [facility] Last Admin: 04/20/18 08:04 Dose: Not Given Nitroglycerin (Nitrostat Sl Tab) 0.4 mg SL Q5M PRN PRN Reason: Pain, moderate (4-7) Ondansetron HCl (Zofran Inj) 4 mg IVP Q6 PRN PRN Reason: Nausea/Vomiting Oxycodone HCl (Oxycodone Immediate Release Tab) 15 mg PO Q4 PRN PRN Reason: Pain, severe (8-10) - Labs Labs: 04/20/18 04:25 04/20/18 04:25 PT 12.6 Seconds (9.8-13.1) 04/16/18 17:05 INR 1.1 03/07/19 17:05 Assessment and Plan (1) Angina pectoris Status: Acute (2) Abnormal stress test Status: Chronic (3) HTN (hypertension) Status: Acute (4) Hx of pulmonary embolus Status: Acute (5) Presence of IVC filter Status: Acute (6) Dyslipidemia Status: Acute - Assessment and Plan (Free Text) Plan: CARDIAC CATH CANCELED TODAY PTS RECORDS OF ABN ST NOT FAXED FOR REVIEW. I D/W PT AND RESIDENTS. ALL PRIOR RECORDS NEED TO BE OBTAINED. ADDITIONALLY PT NEEDS STRESS TEST IN AM.
[2018-04-20] MEDS: oxyCODONE 5 mg Immediate Release Tab PO PRN ×2 (18:16→22:17)
[2018-04-21] MEDS: oxyCODONE 5 mg Immediate Release Tab PO PRN ×5 (03:10→21:28)
[2018-04-21] MEDS: Levothyroxine 50 MCG TAB PO SCH (06:24)
[2018-04-21] MEDS: Lidocaine 5% Patch TD SCH (09:07)
[2018-04-21] MEDS: Multivitamin With Minerals Tab PO SCH ×2 (09:08→10:58)
--- NOTE | 2018-04-21 10:06 | CP.PCM.PN ---
<SmithMireles - Last Filed: 04/21/18 10:51> Subjective - Date & Time of Evaluation Date of Evaluation: 04/21/18 Time of Evaluation: 07:00 - Subjective Subjective: Pt seen and examined at bedside. No current chest pain. Pt did not have cath last night. States girlfriend could bring it. States PMD Dr. Ayala is new and would not have his prior stress tests. Pt ambulating without difficulty. Objective - Vital Signs/Intake and Output Vital Signs (last 24 hours): Temp Pulse Resp BP Pulse Ox 98.2 F 98 H 18 120/81 98 04/21/18 07:48 04/21/18 09:00 04/21/18 07:48 04/21/18 07:48 04/21/18 07:48 - Medications Medications: Current Medications Amlodipine Besylate (Norvasc) 5 mg PO DAILY [facility] Last Admin: 04/21/18 09:07 Dose: Not Given Apixaban (Eliquis) 5 mg PO Q12 [facility]; Protocol Last Admin: 04/21/18 09:07 Dose: Not Given Aspirin (Ecotrin) 81 mg PO DAILY [facility] Last Admin: 04/21/18 09:07 Dose: Not Given Atorvastatin Calcium (Lipitor) 80 mg PO HS [facility] Last Admin: 04/20/18 21:23 Dose: 80 mg Isosorbide Mononitrate (Imdur) 60 mg PO DAILY [facility] Last Admin: 04/21/18 09:07 Dose: Not Given Levothyroxine Sodium (Synthroid) 50 mcg PO DAILY@0630 [facility] Last Admin: 04/21/18 06:24 Dose: 50 mcg Lidocaine (Lidoderm) 1 ea TD DAILY [facility] Last Admin: 04/21/18 09:07 Dose: Not Given Lisinopril (Zestril) 20 mg PO DAILY [facility] Last Admin: 04/19/18 09:44 Dose: 20 mg Metoprolol Tartrate (Lopressor) 150 mg PO Q12 [facility] Last Admin: 04/21/18 09:07 Dose: Not Given Multivitamins/Minerals (Therapeutic-M Tab) 1 tab PO DAILY [facility] Last Admin: 04/21/18 09:08 Dose: Not Given Nitroglycerin (Nitrostat Sl Tab) 0.4 mg SL Q5M PRN PRN Reason: Pain, moderate (4-7) Ondansetron HCl (Zofran Inj) 4 mg IVP Q6 PRN PRN Reason: Nausea/Vomiting Oxycodone HCl (Oxycodone Immediate Release Tab) 15 mg PO Q4 PRN PRN Reason: Pain, severe (8-10) Last Admin: 04/21/18 07:24 Dose: 15 mg - Labs Labs: 04/20/18 04:25 04/20/18 04:25 PT 12.6 Seconds (9.8-13.1) 04/16/18 17:05 INR 1.1 04/16/18 17:05 - Constitutional Appears: Well, No Acute Distress - Eye Exam Eye Exam: EOMI - ENT Exam ENT Exam: Mucous Membranes Moist - Neck Exam Neck Exam: Full ROM - Respiratory Exam Respiratory Exam: Clear to Ausculation Bilateral, NORMAL BREATHING PATTERN. absent: Wheezes - Cardiovascular Exam Cardiovascular Exam: REGULAR RHYTHM, +S1, +S2 - GI/Abdominal Exam GI & Abdominal Exam: Soft, Normal Bowel Sounds. absent: Tenderness - Neurological Exam Neurological Exam: Alert, Awake, CN II-XII Intact, Normal Gait, Oriented x3 - Psychiatric Exam Psychiatric exam: Normal Affect, Normal Mood Assessment and Plan - Assessment and Plan (Free Text) Assessment: 47 year old Male with PMHx of hypertension, hyperlipidemia, hypothyroidism, multiple pulmonary embolism (last PE in 12/2017), admitted for evaluation of chest pain, awaiting cardiac cath today. Plan: Chest pain -Hx abnormal stress test in the past -Pending pt bringing reports from home. -Cardiology consult: Dr. Ponce -troponin x 3 neg -CT chest: Slightly limited study demonstrating no definitive radiographic evidence of acute central pulmonary embolus. Minor atelectasis/scarring changes seen in the right middle lobe. Mild passive/dependent type atelectasis both posterior lower lung gonzalez. Splenomegaly. -ECHO: EF 55-60%, mild LVH -c/w aspirin, statin, metroprolol and rest of BP meds -Pt for STRESS test today. -Cath tomorrow. Hold eliquis prior. Thrombocytopenia: -94 -Continue to monitor HX Pulmonary embolism s/p IVC filter -on Eliquis 5 mg q12h; hold prior to cath. -per patient, hypercoagulability work up unremarkable -held eliquis day prior to cardiac cath Hypertension -controlled -c/w home medications Hyperlipidemia -c/w statin therapy Blood in stool -Per patient; pending further eval -Pt has 1 month hx -Father with colon ca at 54 -Pt due for screening colonoscopy -monitor for further rectal bleed -Occult blood Hypothyroidism -controlled -resume Levothyroxine -Thyroid studies all wnl Chronic Lower back pain and right shoulder pain -resume oxycodone ER 15 mg q4h prn DVT prophylaxis -Patient on eliquis 5 mg po q12 -SCDs Case and plan d/w Dr. Kuldeep Smith MD PGY2 <Izzy Light - Last Filed: 04/21/18 15:38> Objective - Vital Signs/Intake and Output Vital Signs (last 24 hours): Temp Pulse Resp BP Pulse Ox 98.7 F 89 18 148/90 96 04/21/18 13:30 04/21/18 13:30 04/21/18 12:00 04/21/18 13:30 04/21/18 12:00 - Medications Medications: Current Medications Amlodipine Besylate (Norvasc) 5 mg PO DAILY [facility] Last Admin: 04/21/18 10:58 Dose: 5 mg Apixaban (Eliquis) 5 mg PO Q12 [facility]; Protocol Last Admin: 04/21/18 11:26 Dose: 5 mg Aspirin (Ecotrin) 81 mg PO DAILY [facility] Last Admin: 04/21/18 10:55 Dose: 81 mg Atorvastatin Calcium (Lipitor) 80 mg PO HS [facility] Last Admin: 04/20/18 21:23 Dose: 80 mg Isosorbide Mononitrate (Imdur) 60 mg PO DAILY [facility] Last Admin: 04/21/18 09:07 Dose: Not Given Levothyroxine Sodium (Synthroid) 50 mcg PO DAILY@0630 [facility] Last Admin: 04/21/18 06:24 Dose: 50 mcg Lidocaine (Lidoderm) 1 ea TD DAILY [facility] Last Admin: 04/21/18 09:07 Dose: Not Given Lisinopril (Zestril) 20 mg PO DAILY [facility] Last Admin: 04/19/18 09:44 Dose: 20 mg Metoprolol Tartrate (Lopressor) 150 mg PO Q12 [facility] Last Admin: 04/21/18 10:56 Dose: 150 mg Multivitamins/Minerals (Therapeutic-M Tab) 1 tab PO DAILY [facility] Last Admin: 04/21/18 10:58 Dose: 1 tab Nitroglycerin (Nitrostat Sl Tab) 0.4 mg SL Q5M PRN PRN Reason: Pain, moderate (4-7) Ondansetron HCl (Zofran Inj) 4 mg IVP Q6 PRN PRN Reason: Nausea/Vomiting Oxycodone HCl (Oxycodone Immediate Release Tab) 15 mg PO Q4 PRN PRN Reason: Pain, severe (8-10) Last Admin: 04/21/18 11:28 Dose: 15 mg - Labs Labs: 04/20/18 04:25 04/20/18 04:25 PT 12.6 Seconds (9.8-13.1) 04/16/18 17:05 INR 1.1 04/16/18 17:05 Attending/Attestation - Attestation I have personally seen and examined this patient.: Yes I have fully participated in the care of the patient.: Yes I have reviewed all pertinent clinical information, including history, physical exam and plan: Yes
[2018-04-22] MEDS: oxyCODONE 5 mg Immediate Release Tab PO PRN ×2 (03:29→10:54)
[2018-04-22] MEDS: Levothyroxine 50 MCG TAB PO SCH (08:00)
[2018-04-22] MEDS: Multivitamin With Minerals Tab PO SCH (10:25)
--- NOTE | 2018-04-22 10:28 | CP.PCM.PN ---
<Chi Smith - Last Filed: 04/22/18 13:13> Subjective - Date & Time of Evaluation Date of Evaluation: 04/22/18 Time of Evaluation: 07:00 - Subjective Subjective: Pt seen and examined at bedside this AM. NO acute overnight events. Pending further cardiac testing. Pt reports intermittent blood mixed with stool. Objective - Vital Signs/Intake and Output Vital Signs (last 24 hours): Temp Pulse Resp BP Pulse Ox 98 F 85 18 121/81 95 04/22/18 08:29 04/22/18 08:29 04/22/18 08:29 04/22/18 08:29 04/22/18 08:29 - Medications Medications: Current Medications Amlodipine Besylate (Norvasc) 5 mg PO DAILY [facility] Last Admin: 04/21/18 10:58 Dose: 5 mg Apixaban (Eliquis) 5 mg PO Q12 [facility]; Protocol Last Admin: 04/21/18 21:26 Dose: 5 mg Aspirin (Ecotrin) 81 mg PO DAILY [facility] Last Admin: 04/21/18 10:55 Dose: 81 mg Atorvastatin Calcium (Lipitor) 80 mg PO HS [facility] Last Admin: 04/21/18 21:27 Dose: 80 mg Isosorbide Mononitrate (Imdur) 60 mg PO DAILY [facility] Last Admin: 04/21/18 09:07 Dose: Not Given Levothyroxine Sodium (Synthroid) 50 mcg PO DAILY@0630 [facility] Last Admin: 04/21/18 06:24 Dose: 50 mcg Lidocaine (Lidoderm) 1 ea TD DAILY [facility] Last Admin: 04/21/18 09:07 Dose: Not Given Lisinopril (Zestril) 20 mg PO DAILY [facility] Last Admin: 04/19/18 09:44 Dose: 20 mg Metoprolol Tartrate (Lopressor) 150 mg PO Q12 [facility] Last Admin: 04/21/18 21:27 Dose: 150 mg Multivitamins/Minerals (Therapeutic-M Tab) 1 tab PO DAILY [facility] Last Admin: 04/21/18 10:58 Dose: 1 tab Nitroglycerin (Nitrostat Sl Tab) 0.4 mg SL Q5M PRN PRN Reason: Pain, moderate (4-7) Ondansetron HCl (Zofran Inj) 4 mg IVP Q6 PRN PRN Reason: Nausea/Vomiting Oxycodone HCl (Oxycodone Immediate Release Tab) 15 mg PO Q6 PRN PRN Reason: Pain, severe (8-10) Last Admin: 04/22/18 03:29 Dose: 15 mg - Labs Labs: 04/20/18 04:25 04/20/18 04:25 PT 12.6 Seconds (9.8-13.1) 04/16/18 17:05 INR 1.1 04/16/18 17:05 - Constitutional Appears: Well, No Acute Distress - Eye Exam Eye Exam: EOMI - ENT Exam ENT Exam: Mucous Membranes Moist - Respiratory Exam Respiratory Exam: Clear to Ausculation Bilateral, NORMAL BREATHING PATTERN. absent: Wheezes - Cardiovascular Exam Cardiovascular Exam: REGULAR RHYTHM, +S1, +S2 - GI/Abdominal Exam GI & Abdominal Exam: Soft, Normal Bowel Sounds. absent: Tenderness - Neurological Exam Neurological Exam: Alert, Awake, CN II-XII Intact, Normal Gait, Oriented x3 - Psychiatric Exam Psychiatric exam: Normal Affect, Normal Mood Assessment and Plan - Assessment and Plan (Free Text) Assessment: 47 year old Male with PMHx of hypertension, hyperlipidemia, hypothyroidism, multiple pulmonary embolism (last PE in 12/2017), admitted for evaluation of chest pain. Plan: Chest pain -Hx abnormal stress test in the past -Pending pt bringing reports from home. -Cardiology consult: Dr. Ponce -troponin x 3 neg -CT chest: Slightly limited study demonstrating no definitive radiographic evidence of acute central pulmonary embolus. Minor atelectasis/scarring changes seen in the right middle lobe. Mild passive/dependent type atelectasis both posterior lower lung gonzalez. Splenomegaly. -ECHO: EF 55-60%, mild LVH -c/w aspirin, statin, metroprolol and rest of BP meds -f/u stress test Acute GI bleed -bright red blood mixed in stool -stat CBC -hold eliquis and asa -GI consult:Dr. Valdes; further recs appreciated -monitor for active bleed -Pt has 1 month hx -Father with colon ca at 54 -Pt due for screening colonoscopy -f/u Occult blood Thrombocytopenia: -94 -Continue to monitor -labs ordered HX Pulmonary embolism s/p IVC filter -on Eliquis 5 mg q12h; hold due to acute GI bleed -per patient, hypercoagulability work up unremarkable Hypertension -controlled -c/w home medications Hyperlipidemia -c/w statin therapy Hypothyroidism -controlled -resume Levothyroxine -Thyroid studies all wnl Chronic Lower back pain and right shoulder pain -resume oxycodone ER 15 mg q4h prn DVT prophylaxis -Patient was on eliquis 5 mg po q12; held d/t possible GI bleed -SCDs Case and plan d/w Dr. Kuldeep Smith MD PGY2 <Izzy Light - Last Filed: 04/22/18 16:55> Objective - Vital Signs/Intake and Output Vital Signs (last 24 hours): Temp Pulse Resp BP Pulse Ox 98.1 F 82 18 125/76 98 04/22/18 12:21 04/22/18 12:21 04/22/18 12:21 04/22/18 12:21 04/22/18 12:21 - Medications Medications: Current Medications Amlodipine Besylate (Norvasc) 5 mg PO DAILY [facility] Last Admin: 04/22/18 10:27 Dose: 5 mg Apixaban (Eliquis) 5 mg PO Q12 [facility]; Protocol Last Admin: 04/22/18 10:23 Dose: 5 mg Aspirin (Ecotrin) 81 mg PO DAILY [facility] Last Admin: 04/22/18 10:28 Dose: 81 mg Atorvastatin Calcium (Lipitor) 80 mg PO HS [facility] Last Admin: 04/21/18 21:27 Dose: 80 mg Isosorbide Mononitrate (Imdur) 60 mg PO DAILY [facility] Last Admin: 04/22/18 10:25 Dose: 60 mg Levothyroxine Sodium (Synthroid) 50 mcg PO DAILY@0630 [facility] Last Admin: 04/22/18 08:00 Dose: 50 mcg Lidocaine (Lidoderm) 1 ea TD DAILY [facility] Last Admin: 04/22/18 10:30 Dose: Not Given Lisinopril (Zestril) 20 mg PO DAILY [facility] Last Admin: 04/19/18 09:44 Dose: 20 mg Metoprolol Tartrate (Lopressor) 150 mg PO Q12 [facility] Last Admin: 04/22/18 10:26 Dose: 150 mg Multivitamins/Minerals (Therapeutic-M Tab) 1 tab PO DAILY [facility] Last Admin: 04/22/18 10:25 Dose: 1 tab Nitroglycerin (Nitrostat Sl Tab) 0.4 mg SL Q5M PRN PRN Reason: Pain, moderate (4-7) Ondansetron HCl (Zofran Inj) 4 mg IVP Q6 PRN PRN Reason: Nausea/Vomiting Pantoprazole Sodium (Protonix Ec Tab) 40 mg PO DAILY [facility] Last Admin: 04/22/18 14:47 Dose: 40 mg - Labs Labs: 04/22/18 14:09 04/20/18 04:25 PT 12.6 Seconds (9.8-13.1) 04/16/18 17:05 INR 1.1 04/16/18 17:05 Attending/Attestation - Attestation I have personally seen and examined this patient.: Yes I have fully participated in the care of the patient.: Yes I have reviewed all pertinent clinical information, including history, physical exam and plan: Yes Notes (Text): Chest Pain ACS ruled out etiology unclear further work up as outpt - pt was down for Nuclear Stress test last wk however this was cancelled bec he said that he had a positive stress test done at another facility and will ask girlfriend to fax us copy however this was never faxed - Cardiac cath was scheduled but cancelled [facility] pt did not have result of Stress test and also [facility] pt told Dr Ponce that he has been having blood in his stool x 1 month - Dr Ponce recommended a Nuclear Stress test - Myocardial Stress test done - negative accdg to Dr Ponce - discussed case - cleared pt for discharge home -Pt is ambulatory and seen walking around the unit with no apparent distress - Discussed test result and plan for discharge - he wanted to speak with Dr Ponce - Called Dr Ponce and transferred call to pt's room. Blood in Stool Pt mentioned yesterday that he has had blood in his stool x 1 month now no francesca GI bleeding while in the hospital despite being on antiplatelet and therapeutic anticoagulant Hgb and HCT stable Pt even refused Blood work when we asked that H/H be monitored Received Protonix GI consulted , discussed case with Dr Valdes, non life threatening GI bleed - recommended outpt GI work up. Accdg to RN when pt gave stool sample for Occult blood , she noticed that pt's IV line which she just cleaned and intact was now bloody and dislodged. History of PE - CTA Pulm done: no PE - pt on Eliquis Hx of Chronic low back pain accdg to pt he follows up with a Pain specialist in [place] - Dr Jhaveri and that he is on Oxycodone 15 mg q 4 we called Pain mgt's office and was told he made an appt but has never been a pt there. We were told that another Hospital also called last week inquiring about him. Checked GARRY Villafuerte online and he had filled an Rx for Oxycodone from a [place] physician on April 13.
[2018-04-22] MEDS: Lidocaine 5% Patch TD SCH (10:30)
[2018-04-22] MEDS ORDERED: Pantoprazole 40 mg EC Tab PO SCH (12:15)
[2018-04-22 14:32] LABS: HEMOGLOBIN 12.9 g/dL (12.0-18.0); MEAN CELL VOLUME 86.1 fl (80.0-94.0); MEAN CORPUSCULAR HEMOGLOBIN 29.1 pg (27.0-31.0); MEAN CORPUSCULAR HGB CONC 33.7 g/dL (33.0-37.0); RBC 4.44 Mil/uL (4.40-5.90); RED CELL DISTRIBUTION WIDTH 18.1 % (11.5-14.5); WHITE BLOOD COUNT 2.8 K/uL (4.8-10.8)
--- NOTE | 2018-04-22 16:29 | CARD ---
APPROVED REPORT Date of service: 04/21/2018 Protocol: ESTEFANY Test Type: Stress Nuclear Medications: ZESTRIL 20MG LOPRESSOR 150MG MULTIVITAMIN NITROSTAT S/L 0.4 ZOFRAN INJ, OXYCODONE, NORVASC 5MG, ECOTRIN 81MG, LIPITOR 80MG, IMDUR 60MG, SYNTHROID 50MCG, LIDODERM Medical History: HYPERTENSION, FAMILY HX CAD, CHOLESTEROL, HYPOTHYROIDISM, MULTIPLE P.E/ IV FILTER, DVT, ROTATOR CUFF INJURY, RT KNEE SURGERY, LOOP RECORDER 2014 FOR SYNCOPE, BRADYCARDIA- NON FUNCTIONAL Target HR: 175 bpm Resting ECG: normal Resting Heart Rate: 105 bpm Resting Blood Pressure: 148/90mmHg submaximum (85%): 149 bpm TEST SUMMARY [id number]. [id number]. [id number]/[id number]. PRETESTWARM-[id number]/90.0. EXERCISESTAGE [id number]/70.0. EXERCISESTAGE [id number]/70.0. [id number]/88.0. POST EXERCISE Reason for Termination: Fatigue and chest pressure Target HR: Yes Max HR: 141 bpm 80% of Maximum Predicted HR: 175 bpm Exercise duration: 03:53 min:sec, 2 Stage Exercise capacity: 5.6METs Max Blood Pressure: 160/98mmHg Blood Pressure response to exercise: normal resting BP - appropriate response Heart Rate response to exercise: appropriate Chest Pain: Yes, non-limiting Angina index: 0 Arrhythmia: No, one non conducted APC ST Change: No, none Deviation: 0 mm Clinical Indications Under Appropriate Use Criteria Patient was admitted to the hospital with chest pressrue. He has history of chest pressure in the past and according to patient he had abnormal stress test and abnormal nuclear. Stress EKG Interpretation Patient exercised in a Estefany protocole for a total of 3.53 minutes. Patient had a normal blood pressure response during the exercise with a maximum pressure of 160/98. Paient had 80% maximum HR predicted exercise. Patient had chest pressure during exercise but there not associatted with EKG changes. Nuclear agent was injected during patient chest pressure and patient exercised 1 mintue after injection still with chest pressure. Patient after the exercise test was monitored for 10 minutes until his chest pressure was relieved. No EKG changes was noticed during the time of recovery. During this time of recovery I was present all the time as well as the techitinian and the nurse in charge. After the patient was asymptomatic the electrocardiogram was terminated and patient returned to the his room of the hospital asymptomatic. RESTING ECG Rhythm: Sinus Conduction: Normal Arrhythmias: None Repolarization: Normal STRESS ECG Rhythm: Sinus Conduction: Normal Arrhythmias: None Repolarization: Normal none ST-Segment changes. EXAM: Myocardial Perfusion REST/STRESS Image QualityGood Imaging Protocol The imaging protocol used to acquire images was Rest Tc-99m/stress Tc-99m 1 dayRest Tc-99m/stress Tc-99m 2 days Rest Spect myocardial perfusion imaging was performed in supine position 62 minutes following the injection of 10 mCi of Tc-99 Myoview. Time of rest injection: 8:18 Time of rest imagin:22 At peak stress, the patient was injected intravenously with 30mCi of Tc-99 tetrofosmin after an infusion time of minutes and seconds. Time of stress injection: 11:00 Time of stress imagin:30 Gated Stress Spect was performed 90 minutes after intravenous Tc-99 Myoview injection. The images were gated to evaluate regional wall motion and calculate ventricular ejection fraction. NUCLEAR IMAGE INTERPRETATION Study quality was excellent. Left Ventricular size was Normal at Rest and Stress. Lung uptake was Normal. Left Ventricular ejection fraction is 71%. The rest and stress images show normal perfusion, normal contraction and thickening. LV Perfusion Normal perfusion scan LV Perfusion 1 The rest and stress images show normal perfusion. Wall Motion Normal wall motion . LVEF 71% CONCLUSION 1. Normal stress test. Recommendation Medical therapy
--- NOTE | 2018-04-22 16:30 | CP.PCM.DIS ---
<Chi Smith - Last Filed: 04/22/18 16:40> Provider - Provider Date of Admission: 04/17/18 16:52 Attending physician: Ирина Nath DO Consults: 04/16/18 18:30 Cardiology Consult Routine Comment: Consulting Provider: Raghavendra Ponce Consulting Physician: Raghavendra Ponce Reason for Consult: dyspnea on exertion, hx PE, hx abnormal stress test 5 months ago 04/22/18 15:14 Gastroenterology Consult Routine Comment: Consulting Provider: Abram Jackson Consulting Physician: Abram Jackson Reason for Consult: blood in stool Time Spent in preparation of Discharge (in minutes): 30 Hospital Course - Lab Results Lab Results: Most Recent Lab Values WBC 2.8 K/uL (4.8-10.8) L 04/22/18 14:09 RBC 4.44 Mil/uL (4.40-5.90) 04/22/18 14:09 Hgb 12.9 g/dL (12.0-18.0) 04/22/18 14:09 Hct 38.2 % (35.0-51.0) 04/22/18 14:09 MCV 86.1 fl (80.0-94.0) 04/22/18 14:09 MCH 29.1 pg (27.0-31.0) 04/22/18 14:09 MCHC 33.7 g/dL (33.0-37.0) 04/22/18 14:09 RDW 18.1 % (11.5-14.5) H 04/22/18 14:09 Plt Count 96 K/uL (130-400) L 04/22/18 14:09 MPV 8.7 fl (7.2-11.7) 04/16/18 17:05 Neut % (Auto) 72.9 % (50.0-75.0) 04/16/18 17:05 Lymph % (Auto) 16.8 % (20.0-40.0) L 04/16/18 17:05 Garvin % (Auto) 7.3 % (0.0-10.0) 04/16/18 17:05 Eos % (Auto) 2.5 % (0.0-4.0) 04/16/18 17:05 Baso % (Auto) 0.5 % (0.0-2.0) 04/16/18 17:05 Neut # (Auto) 2.9 K/uL (1.8-7.0) 04/16/18 17:05 Lymph # (Auto) 0.7 K/uL (1.0-4.3) L 04/16/18 17:05 Garvin # (Auto) 0.3 K/uL (0.0-0.8) 04/16/18 17:05 Eos # (Auto) 0.1 K/uL (0.0-0.7) 04/16/18 17:05 Baso # (Auto) 0.0 K/uL (0.0-0.2) 04/16/18 17:05 PT 12.6 Seconds (9.8-13.1) 04/16/18 17:05 INR 1.1 04/16/18 17:05 Sodium 140 mmol/l (132-148) 04/20/18 04:25 Potassium 4.0 MMOL/L (3.6-5.0) 04/20/18 04:25 Chloride 105 mmol/L (98-107) 04/20/18 04:25 Carbon Dioxide 30 mmol/L (22-30) 04/20/18 04:25 Anion Gap 9 (10-20) L 04/20/18 04:25 BUN 13 mg/dl (9-20) 04/20/18 04:25 Creatinine 0.8 mg/dl (0.8-1.5) 04/20/18 04:25 Est GFR ( Amer) > 60 04/20/18 04:25 Est GFR (Non-Af Amer) > 60 04/20/18 04:25 Random Glucose 122 mg/dL (75-110) H 04/20/18 04:25 Hemoglobin A1c 5.9 % (4.2-6.5) 04/17/18 04:30 Calcium 9.2 mg/dL (8.4-10.2) 04/20/18 04:25 Phosphorus 3.8 mg/dl (2.5-4.5) 04/17/18 04:30 Magnesium 2.1 MG/DL (1.6-2.3) 04/17/18 04:30 Total Bilirubin 0.5 mg/dl (0.2-1.3) 04/16/18 17:05 AST 108 U/L (17-59) H 04/16/18 17:05 ALT 178 U/L (21-72) H 04/16/18 17:05 Alkaline Phosphatase 55 U/L (38-126) 04/16/18 17:05 Troponin I < 0.0120 ng/mL (0.00-0.120) 04/17/18 04:30 NT-Pro-B Natriuret Pep 22.3 pg/ml (0-450) 04/17/18 04:30 Total Protein 8.4 G/DL (6.3-8.2) H 04/16/18 17:05 Albumin 4.5 g/dL (3.5-5.0) 04/16/18 17:05 Globulin 3.9 gm/dL (2.2-3.9) 04/16/18 17:05 Albumin/Globulin Ratio 1.1 (1.0-2.1) 04/16/18 17:05 Triglycerides 168 mg/DL (0-149) H 04/17/18 04:30 Cholesterol 86 mg/dL (0-199) 04/17/18 04:30 LDL Cholesterol Direct 50 mg/dL (0-129) 04/17/18 04:30 HDL Cholesterol 17 MG/DL (30-70) L 04/17/18 04:30 Free T4 1.30 ng/dL (0.78-2.19) 04/17/18 04:30 Total T3 1.58 nmol/L (1.49-2.60) 04/17/18 04:30 TSH 3rd Generation 1.33 mIU/ML (0.46-4.68) 04/17/18 04:30 Stool Occult Blood Positive (NEGATIVE) H 04/22/18 14:00 Urine Opiates Screen Positive (NEGATIVE) H 04/17/18 17:16 Urine Methadone Screen Negative (NEGATIVE) 04/17/18 17:16 Ur Barbiturates Screen Negative (NEGATIVE) 04/17/18 17:16 Ur Phencyclidine Scrn Negative (NEGATIVE) 04/17/18 17:16 Ur Amphetamines Screen Negative (NEGATIVE) 04/17/18 17:16 U Benzodiazepines Scrn Negative (NEGATIVE) 04/17/18 17:16 U Oth Cocaine Metabols Negative (NEGATIVE) 04/17/18 17:16 U Cannabinoids Screen Negative (NEGATIVE) 04/17/18 17:16 - Hospital Course Hospital Course: 47 year old Male with PMHx of hypertension, hyperlipidemia, hypothyroidism, multiple pulmonary embolism (last PE in 12/2017), admitted for evaluation of chest pain. Plan: Chest pain -Pt states Hx abnormal stress test in the past -Pending pt bringing reports from home. -Cardiology consult: Dr. Ponce -troponin x 3 neg -CT chest: Slightly limited study demonstrating no definitive radiographic evidence of acute central pulmonary embolus. Minor atelectasis/scarring changes seen in the right middle lobe. Mild passive/dependent type atelectasis both posterior lower lung gonzalez. Splenomegaly. -ECHO: EF 55-60%, mild LVH -c/w aspirin, statin, metroprolol and rest of BP meds -Cardiac stress test: normal Acute GI bleed -bright red blood mixed in stool -stat CBC: stable -hold eliquis and asa -GI consult:Dr. Jackson -monitored for active bleed -Pt has 1 month hx -Father with colon ca at 54 -Pt due for screening colonoscopy Thrombocytopenia: -94>96 -Continue to monitor -labs ordered HX Pulmonary embolism s/p IVC filter -on Eliquis 5 mg q12h; hold due to possible acute GI bleed -per patient, hypercoagulability work up unremarkable Hypertension -controlled -home medications Hyperlipidemia -c/w statin therapy Hypothyroidism -controlled -resume Levothyroxine -Thyroid studies all wnl Chronic Lower back pain and right shoulder pain - oxycodone ER 15 mg q6h prn Called PMD Dr. Daniel Ayala: spoke to him personally; states Mr. Hall is not and was never a patient of his. Called Dr. Loyd's office: spoke to Dany who states Mr. Hall was never treated by Dr. Oliver and that another hospital had inquired about the same issue last week. Dany also states Mr. Hall has called to make an initial appt but has not shown. Pt statements have been inconsistent among providers. PDMP was pulled today showing pt was seen in [facility]: and prescribed oxycodone 15 mg q4 #18. Dr. Bautista Prado. 1 week prior. with no history of controlled substance prescribed by said pain physician. Pt seen and examined by Dr. Jackson. Pt encouraged to f/u with Dr. jackson for OP colonscopy and or endoscopy Pt discharged home. To follow up with pmd and Dr. Ponce. Case and plan d/w Dr. Kuldeep Smith MD PGY2 Discharge Exam - Head Exam Head Exam: ATRAUMATIC, NORMAL INSPECTION, NORMOCEPHALIC - Eye Exam Eye Exam: EOMI - ENT Exam ENT Exam: Mucous Membranes Moist - Respiratory Exam Respiratory Exam: Clear to PA & Lateral, NORMAL BREATHING PATTERN. absent: Wheezes - Cardiovascular Exam Cardiovascular Exam: REGULAR RHYTHM, +S1, +S2 - GI/Abdominal Exam GI & Abdominal Exam: Normal Bowel Sounds, Soft. absent: Tenderness - Neurological Exam Neurological exam: Alert, CN II-XII Intact, Oriented x3 - Psychiatric Exam Psychiatric exam: Normal Affect, Normal Mood Discharge Plan - Discharge Medications Prescriptions: Omeprazole Magnesium [Prilosec Otc] 20 mg PO BID #60 tablet.dr - Follow Up Plan Condition: FAIR Disposition: HOME/ ROUTINE Instructions: High Blood Pressure (DC), Gastrointestinal Bleeding (DC), Chest Pain (DC) Additional Instructions: Please follow up with pmd: Dr. Morales; pain management: Dr. Loyd shaji Cardiology: Dr. Ponce; GI: Dr. Jackson. in 1 week Due to possible GI bleed: please Eliquis discontinued until patient is to f/u with GI, PMD and cardiology. Referrals: Raghavendra Ponce MD [Staff Provider] - Abram Jackson MD [Staff Provider] - <Izzy Light - Last Filed: 04/22/18 17:00> Provider - Provider Date of Admission: 04/17/18 16:52 Attending physician: Ирина Nath DO Consults: 04/16/18 18:30 Cardiology Consult Routine Comment: Consulting Provider: Raghavendra Ponce Consulting Physician: Raghavendra Ponce Reason for Consult: dyspnea on exertion, hx PE, hx abnormal stress test 5 months ago 04/22/18 15:14 Gastroenterology Consult Routine Comment: Consulting Provider: Abram Jackson Consulting Physician: Abram Jackson Reason for Consult: blood in stool Hospital Course - Lab Results Lab Results: Most Recent Lab Values WBC 2.8 K/uL (4.8-10.8) L 04/22/18 14:09 RBC 4.44 Mil/uL (4.40-5.90) 04/22/18 14:09 Hgb 12.9 g/dL (12.0-18.0) 04/22/18 14:09 Hct 38.2 % (35.0-51.0) 04/22/18 14:09 MCV 86.1 fl (80.0-94.0) 04/22/18 14:09 MCH 29.1 pg (27.0-31.0) 04/22/18 14:09 MCHC 33.7 g/dL (33.0-37.0) 04/22/18 14:09 RDW 18.1 % (11.5-14.5) H 04/22/18 14:09 Plt Count 96 K/uL (130-400) L 04/22/18 14:09 MPV 8.7 fl (7.2-11.7) 04/16/18 17:05 Neut % (Auto) 72.9 % (50.0-75.0) 04/16/18 17:05 Lymph % (Auto) 16.8 % (20.0-40.0) L 04/16/18 17:05 Garvin % (Auto) 7.3 % (0.0-10.0) 04/16/18 17:05 Eos % (Auto) 2.5 % (0.0-4.0) 04/16/18 17:05 Baso % (Auto) 0.5 % (0.0-2.0) 04/16/18 17:05 Neut # (Auto) 2.9 K/uL (1.8-7.0) 04/16/18 17:05 Lymph # (Auto) 0.7 K/uL (1.0-4.3) L 04/16/18 17:05 Garvin # (Auto) 0.3 K/uL (0.0-0.8) 04/16/18 17:05 Eos # (Auto) 0.1 K/uL (0.0-0.7) 04/16/18 17:05 Baso # (Auto) 0.0 K/uL (0.0-0.2) 04/16/18 17:05 PT 12.6 Seconds (9.8-13.1) 04/16/18 17:05 INR 1.1 04/16/18 17:05 Sodium 140 mmol/l (132-148) 04/20/18 04:25 Potassium 4.0 MMOL/L (3.6-5.0) 04/20/18 04:25 Chloride 105 mmol/L (98-107) 04/20/18 04:25 Carbon Dioxide 30 mmol/L (22-30) 04/20/18 04:25 Anion Gap 9 (10-20) L 04/20/18 04:25 BUN 13 mg/dl (9-20) 04/20/18 04:25 Creatinine 0.8 mg/dl (0.8-1.5) 04/20/18 04:25 Est GFR ( Amer) > 60 04/20/18 04:25 Est GFR (Non-Af Amer) > 60 04/20/18 04:25 Random Glucose 122 mg/dL (75-110) H 04/20/18 04:25 Hemoglobin A1c 5.9 % (4.2-6.5) 04/17/18 04:30 Calcium 9.2 mg/dL (8.4-10.2) 04/20/18 04:25 Phosphorus 3.8 mg/dl (2.5-4.5) 04/17/18 04:30 Magnesium 2.1 MG/DL (1.6-2.3) 04/17/18 04:30 Total Bilirubin 0.5 mg/dl (0.2-1.3) 04/16/18 17:05 AST 108 U/L (17-59) H 04/16/18 17:05 ALT 178 U/L (21-72) H 04/16/18 17:05 Alkaline Phosphatase 55 U/L (38-126) 04/16/18 17:05 Troponin I < 0.0120 ng/mL (0.00-0.120) 04/17/18 04:30 NT-Pro-B Natriuret Pep 22.3 pg/ml (0-450) 04/17/18 04:30 Total Protein 8.4 G/DL (6.3-8.2) H 04/16/18 17:05 Albumin 4.5 g/dL (3.5-5.0) 04/16/18 17:05 Globulin 3.9 gm/dL (2.2-3.9) 04/16/18 17:05 Albumin/Globulin Ratio 1.1 (1.0-2.1) 04/16/18 17:05 Triglycerides 168 mg/DL (0-149) H 04/17/18 04:30 Cholesterol 86 mg/dL (0-199) 04/17/18 04:30 LDL Cholesterol Direct 50 mg/dL (0-129) 04/17/18 04:30 HDL Cholesterol 17 MG/DL (30-70) L 04/17/18 04:30 Free T4 1.30 ng/dL (0.78-2.19) 04/17/18 04:30 Total T3 1.58 nmol/L (1.49-2.60) 04/17/18 04:30 TSH 3rd Generation 1.33 mIU/ML (0.46-4.68) 04/17/18 04:30 Stool Occult Blood Positive (NEGATIVE) H 04/22/18 14:00 Urine Opiates Screen Positive (NEGATIVE) H 04/17/18 17:16 Urine Methadone Screen Negative (NEGATIVE) 04/17/18 17:16 Ur Barbiturates Screen Negative (NEGATIVE) 04/17/18 17:16 Ur Phencyclidine Scrn Negative (NEGATIVE) 04/17/18 17:16 Ur Amphetamines Screen Negative (NEGATIVE) 04/17/18 17:16 U Benzodiazepines Scrn Negative (NEGATIVE) 04/17/18 17:16 U Oth Cocaine Metabols Negative (NEGATIVE) 04/17/18 17:16 U Cannabinoids Screen Negative (NEGATIVE) 04/17/18 17:16 Attending/Attestation - Attestation I have personally seen and examined this patient.: Yes I have fully participated in the care of the patient.: Yes I have reviewed all pertinent clinical information, including history, physical exam and plan: Yes Notes (Text): Chest Pain ACS ruled out etiology unclear further work up as outpt - pt was down for Nuclear Stress test last wk however this was cancelled bec he said that he had a positive stress test done at another facility 6 mos ago and will ask girlfriend to fax us copy however this was never faxed - Cardiac cath was scheduled but cancelled [facility] pt did not have result of Stress test and also [facility] pt told Dr Ponce that he has been having blood in his stool x 1 month - Dr Ponce recommended a Nuclear Stress test - Myocardial Stress test done - negative accdg to Dr Ponce - discussed case - cleared pt for discharge home -Pt is ambulatory and seen walking around the unit with no apparent distress - Discussed test result and plan for discharge - he wanted to speak with Dr Ponce - Called Dr Ponce and transferred call to pt's room. Blood in Stool Pt mentioned yesterday that he has had blood in his stool x 1 month now no francesca GI bleeding while in the hospital despite being on antiplatelet and therapeutic anticoagulant Hgb and HCT stable Pt even refused Blood work when we asked that H/H be monitored Received Protonix GI consulted , discussed case with Dr Jackson, non life threatening GI bleed - recommended outpt GI work up. Accdg to RN when pt gave stool sample for Occult blood , she noticed that pt's IV line which she just cleaned and intact was now bloody and dislodged. History of PE - CTA Pulm done: no PE - pt on Eliquis Hx of Chronic low back pain accdg to pt he follows up with a Pain specialist in [place] - Dr Loyd and that he is on Oxycodone 15 mg q 4 we called Pain mgt's office and was told he made an appt but has never been a pt there. We were told that another Hospital also called last week inquiring about him. Checked [place] [facility] online and he had filled an Rx for Oxycodone from a [place] physician on April 13. Follow up with Primary Care Physician shaji for further work up as outpt- Cardiac, and GI work up
[2018-04-22 16:32] VITALS: BP 117/82; PULSE 99; RESP 16; TEMP 98.2; O2SAT 96
--- NOTE | 2018-04-22 22:53 | CP.PCM.CON ---
History of Present Illness - History of Present Illness History of Present Illness: 47 yo male admitted with chest pain Cardiac w/u negative. Now c/o rectal bleeding , Has father and paternal uncle with colon cancer Review of Systems - Constitutional Constitutional: absent: Chills - EENT Eyes: absent: Blurred Vision Ears: absent: Ear Pain Nose/Mouth/Throat: absent: Nasal Discharge - Cardiovascular Cardiovascular: Chest Pain - Gastrointestinal Gastrointestinal: Abdominal Pain Past Patient History - Past Medical History & Family History Past Medical History?: Yes - Past Social History Smoking Status: Never Smoked Chewing Tobacco Use: No Cigar Use: No Alcohol: Occasional Drugs: Denies Home Situation {Lives}: Alone Domestic Violence: Negative - CARDIAC Hx Angina: Yes Hx Hypercholesterolemia: Yes Hx Hypertension: Yes - PULMONARY Hx Respiratory Disorders: Yes Hx Pulmonary Embolism: Yes - NEUROLOGICAL Hx Neurological Disorder: No - HEENT Hx HEENT Problems: No - RENAL Hx Chronic Kidney Disease: No - ENDOCRINE/METABOLIC Hx Endocrine Disorders: No - HEMATOLOGICAL/ONCOLOGICAL Hx Blood Disorders: No - INTEGUMENTARY Hx Dermatological Problems: No - MUSCULOSKELETAL/RHEUMATOLOGICAL Hx Musculoskeletal Disorders: Yes Hx Falls: No Other/Comment: back problems - GASTROINTESTINAL Hx Gastrointestinal Disorders: No - GENITOURINARY/GYNECOLOGICAL Hx Genitourinary Disorders: No - PSYCHIATRIC Hx Psychophysiologic Disorder: No Hx Substance Use: No - SURGICAL HISTORY Hx Surgeries: Yes Hx Orthopedic Surgery: Yes - ANESTHESIA Hx Anesthesia: Yes Hx Anesthesia Reactions: No Hx Malignant Hyperthermia: No Has any member of the family had a problem w/ anesthesia?: No Meds Home Medications: Home Medication List Medication Instructions Recorded Confirmed Type Omeprazole Magnesium [Prilosec Otc] 20 mg PO BID #60 tablet. 04/22/18 Rx Allergies/Adverse Reactions: Allergies Allergy/AdvReac Type Severity Reaction Status Date / Time Penicillins Allergy RASH Verified 04/16/18 15:45 Physical Exam - Head Exam Head Exam: ATRAUMATIC - Eye Exam Eye Exam: EOMI - ENT Exam ENT Exam: Mucous Membranes Moist - Respiratory Exam Respiratory Exam: Prolonged Expiratory Phase - Cardiovascular Exam Cardiovascular Exam: Diastolic murmur - GI/Abdominal Exam GI & Abdominal Exam: Distended Results - Vital Signs Recent Vital Signs: Last Vital Signs Temp 98.2 F 04/22/18 16:31 Pulse 99 H 04/22/18 16:31 Resp 16 04/22/18 16:31 BP 117/82 04/22/18 16:31 Pulse Ox 96 04/22/18 16:31 - Labs Result Diagrams: 04/22/18 14:09 04/20/18 04:25 Labs: Laboratory Results - last 24 hr 04/22/18 04/22/18 14:00 14:09 WBC 2.8 L RBC 4.44 Hgb 12.9 Hct 38.2 MCV 86.1 MCH 29.1 MCHC 33.7 RDW 18.1 H Plt Count 96 L Stool Occult Blood Positive H
== END 2018-04-22 17:30 | disposition home or self-care (01) | DRG 313 ==
LOC: H.ER 15:37 → H.ERHOLD 16:46 → H.TEL 20:37 → OBSVTOIN 04-17 16:52
PROVIDERS: ADMIT Student in an Organized Health Care Education/Training Program; ATTEND Student in an Organized Health Care Education/Training Program
DX: R07.9 Chest pain, unspecified (principal); K92.1 Melena; I10 Essential (primary) hypertension; E78.5 Hyperlipidemia, unspecified; E03.9 Hypothyroidism, unspecified; Z86.711 Personal history of pulmonary embolism; Z86.718 Personal history of other venous thrombosis and embolism; Z79.01 Long term (current) use of anticoagulants; Z79.82 Long term (current) use of aspirin; Z79.890 Hormone replacement therapy; E78.00 Pure hypercholesterolemia, unspecified; Z88.0 Allergy status to penicillin; R06.09 Other forms of dyspnea; G89.29 Other chronic pain; R00.0 Tachycardia, unspecified; D69.6 Thrombocytopenia, unspecified; I25.10 Atherosclerotic heart disease of native coronary artery without angina pectoris; Z53.09 Procedure and treatment not carried out because of other contraindication